=== PATIENT | female | born 1930 | race Caucasian/White ===

== ENCOUNTER 2017-08-15 09:54 | Emergency (ER) | payer OTHER ==
[2017-08-15] MEDS ORDERED: ACETAMINOPHEN 325 MG TABLET ONE (11:17)
--- NOTE | 2017-08-15 11:28 | RAD REPORT ---
EXAM DESCRIPTION: RAD - Wrist Left 3 View - 08/15/2017 11:00 am CLINICAL HISTORY: Left wrist pain status post injury FINDINGS: There appear to be old fractures involving the distal radius and ulna. The bones are osteoporotic. A small lucency is present within the triquetrum which could either represent a prominent trabecula o r nondisplaced fracture and should be correlated clinically to see if the patient has point tendernes s in this region.
--- NOTE | 2017-08-15 11:32 | RAD REPORT ---
EXAM DESCRIPTION: RAD - Knee Right 3 View - 08/15/2017 11:10 am CLINICAL HISTORY: Left knee pain status post fall FINDINGS: A nondisplaced fracture involves the patella. A moderate hemarthrosis is present. No dislocation is seen. The bones are osteoporotic
--- NOTE | 2017-08-15 12:25 | EDPHYS ---
Physician Documentation [facility] Name: Beryl Diaz Age: 86 yrs Sex: Female : 1930 Arrival Date: 08/15/2017 Time: 09:57 Bed 17 Private MD: Crystal Garcia ED Physician Reid Mancia HPI: 08/15 10:33 This 86 yrs old Female presents to ER via Ambulatory with complaints of Fall jr8 Injury, Wrist Pain, Knee Pain. 10:33 Details of fall: The patient fell from an upright position, while standing. Onset: The jr8 symptoms/episode began/occurred acutely, yesterday. Associated injuries: The patient sustained left arm, decreased range of motion, ecchymosis, swelling, right leg, ecchymosis, swelling. Severity of symptoms: At their worst the symptoms were moderate, in the emergency department the symptoms are unchanged. The patient has not experienced similar symptoms in the past. The patient has not recently seen a physician. Patient stated that she was at musical and tripped over some wires. Fell landing on knee and wrist. Denies hitting head or neck. No LOC . Historical: - Allergies: 10:12 PENICILLINS (Rash); hb 10:12 Sulfa (Sulfonamide Antibiotics) (Rash); hb - Home Meds: 10:12 aspirin 81 mg Oral chew 1 tab once daily [Active]; Avapro 150 mg Oral tab 1 tab once hb daily [Active]; baxyl twice a day [Active]; CoQ-10 100 mg Oral cap daily [Active]; Fish Oil 1,000 mg Oral cap daily [Active]; Flonase 50 mcg/actuation Nasal spsn 1 spray 2 times per day [Active]; Prilosec 20 mg Oral cpDR 1 cap once daily [Active]; armando eyes twice a day [Active]; Vitamin B-12 Oral daily [Active]; Zyrtec 10 mg Oral chew 1 tab once daily [Active]; calcium carbonate 600 mg (1,500 mg) Oral tab daily [Active]; 11:17 Vitamin D 2000 units Oral [Active]; tw2 - PMHx: 10:12 allergies; Hypertension; hb - PSHx: 10:12 Tonsillectomy; Adenoids; Appendectomy; Hysterectomy; Tubal ligation; wrist fracture hb surgery; left cataract surgery; liver resection; - Immunization history:: Adult Immunizations up to date. - Social history:: Smoking status: Patient/guardian denies using tobacco. ROS: 10:33 Eyes: Negative for injury, pain, redness, and discharge, ENT: Negative for injury, jr8 pain, and discharge, Neck: Negative for injury, pain, and swelling, Cardiovascular: Negative for chest pain, palpitations, and edema, Respiratory: Negative for shortness of breath, cough, wheezing, and pleuritic chest pain, Abdomen/GI: Negative for abdominal pain, nausea, vomiting, diarrhea, and constipation, Back: Negative for injury and pain, Skin: Negative for injury, rash, and discoloration, Neuro: Negative for headache, weakness, numbness, tingling, and seizure. 10:33 MS/extremity: Positive for decreased range of motion, ecchymosis, pain, swelling, tenderness, of the right knee. Left wrist . Exam: 10:33 Head/Face: Normocephalic, atraumatic. Eyes: Pupils equal round and reactive to light, jr8 extra-ocular motions intact. Lids and lashes normal. Conjunctiva and sclera are non-icteric and not injected. Cornea within normal limits. Periorbital areas with no swelling, redness, or edema. ENT: Nares patent. No nasal discharge, no septal abnormalities noted. Tympanic membranes are normal and external auditory canals are clear. Oropharynx with no redness, swelling, or masses, exudates, or evidence of obstruction, uvula midline. Mucous membranes moist. Neck: Trachea midline, no thyromegaly or masses palpated, and no cervical lymphadenopathy. Supple, full range of motion without nuchal rigidity, or vertebral point tenderness. No Meningismus. Chest/axilla: Normal chest wall appearance and motion. Nontender with no deformity. No lesions are appreciated. Cardiovascular: Regular rate and rhythm with a normal S1 and S2. No gallops, murmurs, or rubs. Normal PMI, no JVD. No pulse deficits. Respiratory: Lungs have equal breath sounds bilaterally, clear to auscultation and percussion. No rales, rhonchi or wheezes noted. No increased work of breathing, no retractions or nasal flaring. Abdomen/GI: Soft, non-tender, with normal bowel sounds. No distension or tympany. No guarding or rebound. No evidence of tenderness throughout. Back: No spinal tenderness. No costovertebral tenderness. Full range of motion. Skin: Warm, dry with normal turgor. Normal color with no rashes, no lesions, and no evidence of cellulitis. Neuro: Awake and alert, GCS 15, oriented to person, place, time, and situation. Cranial nerves II-XII grossly intact. Motor strength 5/5 in all extremities. Sensory grossly intact. Cerebellar exam normal. Normal gait. 10:33 Musculoskeletal/extremity: Extremities: grossly normal except: noted in the left wrist: decreased ROM, ecchymosis, pain, swelling, tenderness, noted in the right knee: ecchymosis, pain, swelling, tenderness, Circulation is intact in all extremities. Sensation intact. Vital Signs: 10:10 BP 154 / 85; Pulse 84; Resp 16; Temp 98.2; Pulse Ox 98% on R/A; Weight 68.04 kg; Height hb 5 ft. 3 in. (160.02 cm); Pain 5/10; 11:15 BP 162 / 89; Pulse 80; Resp 17; Pulse Ox 97% on R/A; tw2 12:06 BP 155 / 92; Pulse 79; Resp 17; Pulse Ox 97% on R/A; tw2 10:10 Body Mass Index 26.57 (68.04 kg, 160.02 cm) hb Trauma Score (Adult): 10:10 Eye Response: spontaneous(1); Verbal Response: oriented(1); Motor Response: obeys hb commands(2); Systolic BP: > 89 mm Hg(4); Respiratory Rate: 10 to 29 per min(4); Yennifer Score: 15; Trauma Score: 12 Procedures: 12:25 Splinting: Splint applied to right leg using knee immobilizer, applied by nurse. jr8 Examined by me, post splint application: neurovascular intact, 2+ distal pulses palpable, brisk capillary refill noted, Patient tolerated well. 12:25 Splinting: Splint applied to left wrist using wrist splint, applied by nurse. Examined jr8 by me, post splint application: neurovascular intact, 2+ distal pulses palpable, brisk capillary refill noted, Patient tolerated well. MDM: 10:15 Patient medically screened. jr8 12:25 Data reviewed: vital signs, nurses notes, radiologic studies, plain films, and as a jr8 result, I will discharge patient. Data interpreted: Pulse oximetry: on room air is 97 %. Interpretation: normal. Counseling: I had a detailed discussion with the patient and/or guardian regarding: the historical points, exam findings, and any diagnostic results supporting the discharge/admit diagnosis, radiology results, the need for outpatient follow up, a orthopedic surgeon, to return to the emergency department if symptoms worsen or persist or if there are any questions or concerns that arise at home. 08/15 10:33 Order name: XRAY Wrist LEFT 3 view [facility] 08/15 10:33 Order name: XRAY Knee RIGHT 3 view [facility] 08/15 11:28 Order name: RAD; Complete Time: 11:34 [facility] 08/15 11:32 Order name: RAD; Complete Time: 11:34 [facility] 08/15 11:49 Order name: Knee Immobilizer; Complete Time: 12:05 [facility] 08/15 11:49 Order name: Wrist Splint; Complete Time: 12:05 [facility] Administered Medications: 11:00 Drug: Tylenol 650 mg Route: PO; tw2 12:05 Follow up: Response: No adverse reaction; Pain is decreased tw2 Disposition: 08/15/17 12:24 Discharged to Home. Impression: Contusion of left wrist, Nondisplaced right patellar fracture . - Condition is Stable. - Discharge Instructions: Patellar Fracture, Adult, Wrist Pain. - Medication Reconciliation Form, Thank You Letter, Antibiotic Education, Prescription Opioid Use form. - Follow up: Choco Lazcano MD; When: 1 - 2 days; Reason: Recheck today's complaints, Continuance of care, Re-evaluation by your physician. - Problem is new. - Symptoms have improved. Addendum: 08/17/2017 08:10 Co-signature as Attending Physician, Reid Mancia MD I agree with the assessment and c escoto plan of care. Signatures: Dispatcher [employer] [facility] Reid Mancia MD MD cha Smirch, Shelby, RN RN Doni Williamson PA PA jr8 Love Heaton, RN RERE [facility] Marlyn Preciado RN RN Cindi Leija RN RN tw2
--- NOTE | 2017-08-15 12:25 | ER ---
Nurse's Notes [facility] Name: Beryl Diaz Age: 86 yrs Sex: Female : 1930 Arrival Date: 08/15/2017 Time: 09:57 Bed 17 Private MD: Crystal Garcia Diagnosis: Contusion of left wrist;Nondisplaced right patellar fracture Presentation: 08/15 10:08 Presenting complaint: Patient states: Mechanical fall from standing last night, fell hb forward and landed on left hand and right knee. c/o LEFT wrist and RIGHT knee pain /10. Denies other injuries/LOC. Care prior to arrival: None. Mechanism of Injury: Fall from standing position. 10:08 Acuity: TIBURCIO 4 hb 10:08 Method Of Arrival: Ambulatory hb 10:15 Transition of care: patient was not received from another setting of care. Onset of rb1 symptoms was August 14, 2017. Historical: - Allergies: 10:12 PENICILLINS (Rash); hb 10:12 Sulfa (Sulfonamide Antibiotics) (Rash); hb - Home Meds: 10:12 aspirin 81 mg Oral chew 1 tab once daily [Active]; Avapro 150 mg Oral tab 1 tab once hb daily [Active]; baxyl twice a day [Active]; CoQ-10 100 mg Oral cap daily [Active]; Fish Oil 1,000 mg Oral cap daily [Active]; Flonase 50 mcg/actuation Nasal spsn 1 spray 2 times per day [Active]; Prilosec 20 mg Oral cpDR 1 cap once daily [Active]; armando eyes twice a day [Active]; Vitamin B-12 Oral daily [Active]; Zyrtec 10 mg Oral chew 1 tab once daily [Active]; calcium carbonate 600 mg (1,500 mg) Oral tab daily [Active]; 11:17 Vitamin D 2000 units Oral [Active]; tw2 - PMHx: 10:12 allergies; Hypertension; hb - PSHx: 10:12 Tonsillectomy; Adenoids; Appendectomy; Hysterectomy; Tubal ligation; wrist fracture hb surgery; left cataract surgery; liver resection; - Immunization history:: Adult Immunizations up to date. - Social history:: Smoking status: Patient/guardian denies using tobacco. Screenin:15 Abuse screen: Denies threats or abuse. Nutritional screening: No deficits noted. rb1 Tuberculosis screening: No symptoms or risk factors identified. Fall Risk Fall in past 12 months (25 points). No secondary diagnosis (0 pts). No IV (0 pts). Ambulatory Aid- None/Bed Rest/Nurse Assist (0 pts). Gait- Normal/Bed Rest/Wheelchair (0 pts) Mental Status- Oriented to own ability (0 pts). 10:15 Fall Risk Total Davis Fall Scale indicates Low Risk Score (25-44 pts). Fall prevention rb1 measures have been instituted. Side Rails Up X 2 Placed close to Nursing Station 1:1 attendant Assigned to Pt. Frequent Obs/Assesments occuring Family Present and informed to notify staff if they need to leave bedside As available Patient and Family Educated on Fall Prevention Program and strategies. Primary Survey: 10:11 A: Airway: patent, No supplemental oxygen in use on arrival. Breathing/Chest: hb Respiratory pattern: regular, Respiratory effort: spontaneous, unlabored, Chest inspection: symmetrical rise and fall of the chest. Circulation: Pulses: palpable . Skin color: pink, Skin temperature: warm, dry. Disability Alert. Assessment: 10:15 General: Appears uncomfortable, Behavior is calm, cooperative, Denies fever. Pain: rb1 Complains of pain in right leg and left arm Pain currently is 5 out of 10 on a pain scale. Pain began 1 day ago. Neuro: Level of Consciousness is awake, alert, obeys commands, Oriented to person, place, time, situation. Cardiovascular: Capillary refill < 3 seconds is brisk in bilateral fingers. Respiratory: Airway is patent Respiratory effort is even, unlabored, Respiratory pattern is regular, symmetrical. GI: No signs and/or symptoms were reported involving the gastrointestinal system. : No signs and/or symptoms were reported regarding the genitourinary system. Derm: Bruising that is dark purple, on left wrist and right knee. Musculoskeletal: Range of motion: intact in all extremities. 11:15 Reassessment: Patient appears in no apparent distress at this time. No changes from tw2 previously documented assessment. Patient and/or family updated on plan of care and expected duration. Pain level reassessed. Patient is alert, oriented x 3, equal unlabored respirations, skin warm/dry/pink. 12:06 Reassessment: Patient appears in no apparent distress at this time. No changes from tw2 previously documented assessment. Patient and/or family updated on plan of care and expected duration. Pain level reassessed. Patient is alert, oriented x 3, equal unlabored respirations, skin warm/dry/pink. Vital Signs: 10:10 BP 154 / 85; Pulse 84; Resp 16; Temp 98.2; Pulse Ox 98% on R/A; Weight 68.04 kg; Height hb 5 ft. 3 in. (160.02 cm); Pain 5/10; 11:15 BP 162 / 89; Pulse 80; Resp 17; Pulse Ox 97% on R/A; tw2 12:06 BP 155 / 92; Pulse 79; Resp 17; Pulse Ox 97% on R/A; tw2 10:10 Body Mass Index 26.57 (68.04 kg, 160.02 cm) hb Trauma Score (Adult): 10:10 Eye Response: spontaneous(1); Verbal Response: oriented(1); Motor Response: obeys hb commands(2); Systolic BP: > 89 mm Hg(4); Respiratory Rate: 10 to 29 per min(4); Yennifer Score: 15; Trauma Score: 12 ED Course: 09:57 Patient arrived in ED. as 09:57 Crystal Garcia MD is Private Physician. as 10:10 Triage completed. hb 10:15 Doni Gill PA is PHCP. jr8 10:15 Reid Mancia MD is Attending Physician. jr8 10:15 Patient has correct armband on for positive identification. Bed in low position. Call rb1 light in reach. Side rails up X 1. Pulse ox on. NIBP on. Warm blanket given. 10:22 Love Heaton, RN is Primary Nurse. rb1 10:48 Primary Nurse role handed off by Love Heaton, RN tw2 10:48 Cindi Leija, RERE is Primary Nurse. tw2 10:50 Arm band placed on. tw2 10:57 X-ray completed. Portable x-ray completed in exam room. Patient tolerated procedure kp1 well. 11:18 No provider procedures requiring assistance completed. tw2 11:46 XRAY Knee RIGHT 3 view Sent. ag 11:46 XRAY Wrist LEFT 3 view Sent. ag 12:02 Velcro wrist splint applied to left wrist. Knee immobilizer applied on right knee. ag 12:06 Dressings:. tw2 12:23 Choco Lazcano MD is Referral Physician. jr8 12:35 Patient did not have IV access during this emergency room visit. tw2 Administered Medications: 11:00 Drug: Tylenol 650 mg Route: PO; tw2 12:05 Follow up: Response: No adverse reaction; Pain is decreased tw2 Outcome: 12:24 Discharge ordered by . jr8 12:35 Discharged to home ambulatory, with family. tw2 12:35 Condition: stable 12:35 Discharge instructions given to patient, family, Instructed on discharge instructions, follow up and referral plans. Demonstrated understanding of instructions, follow-up care. 12:36 Patient left the ED. Signatures: Myranda Emerson Shelby, RN RN Doni Gill PA PA jr8 Zulay Fonseca Rebecca, RN RN [facility] Marlyn Preciado RN RN Cindi Leija RN RN tw2 Nga Brock 1
[2017-08-15 12:41] VITALS: TEMP 98.2
[2017-08-15 12:42] VITALS: O2SAT 97
[2017-08-15 12:43] VITALS: BP 155/92
== END 2017-08-15 12:36 | disposition home or self-care (01) ==
LOC: ER 09:54
DX: S82.001A Unspecified fracture of right patella, initial encounter for closed fracture (principal); S60.212A Contusion of left wrist, initial encounter; W01.0XXA Fall on same level from slipping, tripping and stumbling without subsequent striking against object, initial encounter; Y93.01 Activity, walking, marching and hiking; Y92.89 Other specified places as the place of occurrence of the external cause; Z88.0 Allergy status to penicillin; Z88.2 Allergy status to sulfonamides; Z79.82 Long term (current) use of aspirin; I10 Essential (primary) hypertension
CPT/HCPCS: 99284

== ENCOUNTER 2018-08-22 17:01 | Observation (INO) | payer OTHER ==
--- OUTSIDE RECORDS SUMMARY | 2018-08-22 17:03 | XMS REPORT ---
:1930 Author Organization eClinicalWorks Care Team Providers Name Role Phone Hopkins Moshe Provider Role Unavailable Allergies, Adverse Reactions, Alerts Substance Reaction Event Type Sulfa Info Not Available Drug Allergy PCN Info Not Available Drug Allergy Problems Problem Type Condition Code Onset Dates Condition Status Assessment Pain in joint of left knee M25.562 Active Problem Allergic rhinitis, seasonal J30.2 Active Assessment Primary osteoarthritis of left knee M17.12 Active Assessment Primary osteoarthritis of right M17.11 Active knee Assessment Pain in joint of right knee M25.561 Active Problem 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 Problem Alkaline phosphatase elevation R74.8 Active Problem 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 Problem GERD (gastroesophageal reflux K21.9 Active disease) Problem History of colon cancer Z85.038 Active Problem Hyperlipidemia E78.5 Active Problem Benign essential HTN I10 Active Medications Medication Code Code Instructions Start End Status Dosage System Date Date Flonase [facility] 50650641561 50 MCG/ACT Active INSTILL 2 SPRAYS INTRANASALLY ONCE DAILY Prilosec ND 11065771084 20 MG Orally Active 1 capsule Once a day Flonase ND 61801083873 50 MCG/ACT Active INSTILL 2 SPRAYS INTRANASALLY ONCE DAILY Triamcinolone ND 50678033447 0.025 % July Active 1 application Acetonide Externally 21, to affected Twice a day 2018 area Fish Oil ND 68238111852 1200 MG Orally Active 1 capsule Once a day Zyrtec Allergy ND 63239270911 10 MG Orally Active 1 tablet Once a day Omeprazole ND 31883645870 20 MG Active TAKE 1 CAPSULE DAILY Avapro ND 98797445862 150 MG Active TAKE 1 TABLET DAILY Os-Kb 500 + D NDC 0 Active not defined Neomycin-Polymyx ND 40468214443 3.5-96491-5 Mar 08, Active 4 drops into in-HC Otic Three 2018 affected ear times a day Results No Known Results Summary Purpose eClinicalWorks Submission
--- OUTSIDE RECORDS SUMMARY | 2018-08-22 17:03 | XMS REPORT ---
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
--- OUTSIDE RECORDS SUMMARY | 2018-08-22 17:03 | XMS REPORT ---
:1930 Author Organization eClinicalWorks Care Team Providers Name Role Phone Garcia, Na Provider Role Unavailable Allergies No Known Allergies Problems Problem Type Condition Code Onset Dates Condition Status Assessment GERD (gastroesophageal reflux K21.9 Active disease) Assessment Allergic rhinitis, seasonal J30.2 Active Assessment Benign essential HTN I10 Active Problem Benign essential HTN I10 Active Problem GERD (gastroesophageal reflux K21.9 Active disease) Problem Hyperlipidemia E78.5 Active Problem Alkaline phosphatase elevation R74.8 Active Problem History of colon cancer Z85.038 Active Problem Allergic rhinitis, seasonal J30.2 Active Medications Medication Code System Code Instructions Start End Date Status Dosage Date Avapro [facility] 75003252245 150 MG Orally Active 1 tablet Once a day Prilosec [facility] 34985738388 20 MG Orally Once Active 1 capsule a day Results No Known Results Summary Purpose eClinicalWorks Submission
--- OUTSIDE RECORDS SUMMARY | 2018-08-22 17:03 | XMS REPORT ---
:1930 Author Organization eClinicalWorks Care Team Providers Name Role Phone Garcia, Na Provider Role Unavailable Allergies, Adverse Reactions, Alerts Substance Reaction Event Type Sulfa Info Not Available Drug Allergy PCN Info Not Available Drug Allergy Problems Problem Type Condition Code Onset Dates Condition Status Assessment History of colon cancer Z85.038 Active Assessment Hyperlipidemia E78.5 Active Assessment GERD (gastroesophageal reflux K21.9 Active disease) Problem Benign essential HTN I10 Active Problem GERD (gastroesophageal reflux K21.9 Active disease) Problem Hyperlipidemia E78.5 Active Problem Alkaline phosphatase elevation R74.8 Active Assessment Benign essential HTN I10 Active Problem History of colon cancer Z85.038 Active Problem Allergic rhinitis, seasonal J30.2 Active Assessment Screening mammogram, encounter for Z12.31 Active Assessment Actinic keratosis L57.0 Active Assessment Allergic rhinitis, seasonal J30.2 Active Assessment Screening for osteoporosis Z13.820 Active Assessment Alkaline phosphatase elevation R74.8 Active Medications Medication Code Code Instructions Start End Status Dosage System Date Date Triamcinolone [facility] 12281964195 0.025 % July Active 1 application Acetonide Externally 21, to affected Twice a day 2018 area Flonase ND 49114591245 50 MCG/ACT Active INSTILL 2 SPRAYS INTRANASALLY ONCE DAILY Avapro ND 44720149552 150 MG Orally Active 1 tablet Once a day Os-Kb 500 + D NDC 0 Active not defined Zyrtec Allergy ND 22118107272 10 MG Orally Active 1 tablet Once a day Prilosec ND 22895542505 20 MG Orally Active 1 capsule Once a day Fish Oil ND 04796426936 1200 MG Orally Active 1 capsule Once a day Results No Known Results Summary Purpose eClinicalWorks Submission
--- OUTSIDE RECORDS SUMMARY | 2018-08-22 17:03 | XMS REPORT ---
[...] End Status Dosage System Date Date Triamcinolone [facility] 79088275580 0.025 % July Active 1 application Acetonide Externally 21, to affected Twice a day 2017 area Avapro ND 87054059489 150 MG Active TAKE 1 TABLET DAILY Omeprazole ND 44712425748 20 MG Active TAKE 1 CAPSULE DAILY Prilosec ND 67698912871 20 MG Orally Active 1 capsule Once a day Neomycin-Polymyx ND 11467670460 3.5-87400-6 Mar 08, Active 4 drops into in-HC Otic Three 2018 affected ear times a day Zyrtec Allergy ND 49760542398 10 MG Orally Active 1 tablet Once a day Fish Oil ND 00839317762 1200 MG Orally Active 1 capsule Once a day Flonase ND 60390736301 50 MCG/ACT Active INSTILL 2 SPRAYS INTRANASALLY ONCE DAILY Flonase NDC 61989067725 50 MCG/ACT Active INSTILL 2 SPRAYS INTRANASALLY ONCE DAILY Os-Kb 500 + D NDC 0 Active not defined Results No Known Results Summary Purpose eClinicalWorks Submission
--- OUTSIDE RECORDS SUMMARY | 2018-08-22 17:03 | XMS REPORT ---
:1930 Author Organization eClinicalWorks Care Team Providers Name Role Phone Moshe Hopkins Provider Role Unavailable Allergies No Known Allergies [...] Problem Benign essential HTN I10 Active Medications No Known Medications Results No Known Results Summary Purpose eClinicalWorks Submission
[2018-08-22 18:01] LABS: Absolute Lymphocytes (CBC) 0.5 K/uL (0.7-4.9); Absolute Monocytes 0.5 K/uL (0.1-1.3); Absolute Neutrophil 10.5 K/uL (1.8-8.0); Basophils % 0.3 % (0-1.3); Eosinophils % 0.1 % (0-4.4); Hematocrit 43.9 % (36.0-45.0); Lymphocytes % 4.3 % (15.3-44.8); MPV 8.9 fL (7.6-11.3); Monocytes % 4.7 % (3.3-12.3); RBC Red Blood Cell Count 4.73 M/uL (3.86-4.86)
[2018-08-22] MEDS ORDERED: NA CHLORIDE 0.9% 1,000 ML ONE ×2 (18:03→19:53)
[2018-08-22 18:10] LABS: Protime INR 1.07
[2018-08-22 18:21] LABS: ALT/SGPT 60 U/L (12-78); AST/SGOT 69 U/L (15-37); Albumin 3.6 g/dL (3.4-5.0); Alkaline Phosphatase 301 U/L (45-117); BUN Blood Urea Nitrogen 21 mg/dL (7-18); Bicarbonate 27 mmol/L (21-32); Bilirubin Direct 0.5 mg/dL (0-0.2); Bilirubin Total 1.3 mg/dL (0.2-1.0); CKMB Creatine Kinase MB < 1.0 ng/mL (0.3-3.6); Creatine Phosphokinase 61 U/L (26-192); Glucose Level 100 mg/dL (74-106); Lipase 178 U/L (73-393); Potassium 3.7 mmol/L (3.5-5.1); Protein, Total 7.5 g/dL (6.4-8.2); Sodium Level 140 mmol/L (136-145); Troponin (Emerg Dept Use Only) < 0.02 ng/mL (0.0-0.045)
[2018-08-22] MEDS ORDERED: IBUPROFEN 400 MG TAB ONE (18:52)
[2018-08-22] MEDS ORDERED: IBUPROFEN 200 MG TAB PO ONE (18:53)
--- NOTE | 2018-08-22 19:13 | RAD REPORT ---
EXAM DESCRIPTION: CT - Chest For Pe Angio - 08/22/2018 7:01 pm CLINICAL HISTORY: Chest pain, shortness of breath COMPARISON: Chest film same date, PE study November 2016 TECHNIQUE: Dynamically enhanced 3 mm thick images of the chest were obtained during administration o f approximately 150mL Isovue 370 IV contrast. Coronal and oblique MIP reconstruction images were gene rated and reviewed. Exam utilizes a protocol to evaluate the pulmonary arterial tree. All CT scans are performed using dose optimization technique as appropriate and may include automated exposure control or mA/KV adjustment according to patient size. FINDINGS: No pulmonary emboli are identified. The aorta as imaged shows no acute or suspicious finding. No pericardial thickening or effusion. No focal mass or consolidation. Interstitial thickening is present from edema, infiltrate or scarring . No pleural effusion or pleural thickening. No mediastinal or hilar suspicious masses. No chest wall masses or abnormal axillary lymphadenopathy. Limited imaging of the upper abdomen shows moderate size hiatal hernia. This is slightly enlarged fro 2016. There is a 14 centimeter right hepatic cyst that is similar to comparison. IMPRESSION: No pulmonary emboli identified. Interstitial thickening from edema or infiltrate. No mass or consolidation. Additional nonacute findings detailed in the body of the report.
--- NOTE | 2018-08-22 19:13 | RAD REPORT ---
EXAM DESCRIPTION: RAD - Chest Single View - 08/22/2018 6:54 pm CLINICAL HISTORY: Fever, dyspnea COMPARISON: November 2016 TECHNIQUE: AP portable chest image was obtained 1851 hours . FINDINGS: Lung volumes are low. No peripheral mass or consolidation. Patient has a baseline of inter stitial opacification. Early interstitial edema or infiltrate could easily be masked in this setting. Mediastinum is accentuated by the shallow inspiration. Heart and vasculature are normal. No measurab le pleural effusion and no pneumothorax. No acute bony abnormality seen. No acute aortic findings joao pected. IMPRESSION: No peripheral mass or consolidation. Diffuse interstitial thickening throughout the lung bravo. This is mostly baseline. Due to shallow i nspiration, edema and infiltrate are not excluded.
[2018-08-22] MEDS ORDERED: ACETAMINOPHEN 325 MG TABLET ONE (19:53)
[2018-08-22 20:20] LABS: Urine Bacteria <20 /HPF (<20); Urine Culture Reflex Order REFLEXED; Urine RBC <5 /HPF (NONE SEEN)
[2018-08-22 20:28] LABS: Urine Blood TRACE (NEG); Urine Glucose NEGATIVE (NEG); Urine Protein NEGATIVE (NEG)
--- NOTE | 2018-08-22 20:35 | ER ---
Nurse's Notes [facility] Name: Beryl Diaz Age: 87 yrs Sex: Female : 1930 Arrival Date: 08/22/2018 Time: 17:03 Bed 8 Private MD: Crystal Garcia Diagnosis: Pneumonia, unspecified organism;Tachycardia, unspecified Presentation: 08/22 17:25 Presenting complaint: Patient states: Last night I had a little ENG but this morning la1 after I left denominational I had chills, body aches, shortness of breath. Transition of care: patient was not received from another setting of care. Onset of symptoms was August 22, 2018. Risk Assessment: Do you want to hurt yourself or someone else? Patient reports no desire to harm self or others. Care prior to arrival: None. 17:25 Method Of Arrival: Ambulatory la1 17:25 Acuity: TIBURCIO 2 la1 17:35 Initial Sepsis Screen: Does the patient meet any 2 criteria? Does the patient have a aa5 suspected source of infection? Yes:. 17:35 Initial Sepsis Screen: Does the patient meet any 2 criteria? HR > 90 bpm. aa5 Triage Assessment: 20:06 General: Appears in no apparent distress. Pain: Complains of pain in headache. ak1 Respiratory: the patient has mild shortness of breath. Historical: - Allergies: 17:26 PENICILLINS (rash); la1 17:26 Sulfa (Sulfonamide Antibiotics) (rash); la1 - Home Meds: 22:00 aspirin 81 mg Oral chew 1 tab once daily [Active]; Avapro 150 mg Oral tab 1 tab once ak1 daily [Active]; baxyl twice a day [Active]; calcium carbonate 600 mg (1,500 mg) Oral tab daily [Active]; CoQ-10 100 mg Oral cap daily [Active]; Fish Oil 1,000 mg Oral cap daily [Active]; Flonase 50 mcg/actuation Nasal spsn 1 spray 2 times per day [Active]; Prilosec 20 mg Oral cpDR 1 cap once daily [Active]; armando eyes twice a day [Active]; Vitamin B-12 Oral daily [Active]; Vitamin D 2000 units Oral [Active]; Zyrtec 10 mg Oral chew 1 tab once daily [Active]; - PMHx: 17:26 allergies; Hypertension; la1 - PSHx: 22:00 Tonsillectomy; Adenoids; Appendectomy; Hysterectomy; Tubal ligation; left cataract ak1 surgery; wrist fracture surgery; liver resection; - Immunization history:: Adult Immunizations up to date. - Social history:: Smoking status: Patient/guardian denies using tobacco. - Ebola Screening: : No symptoms or risks identified at this time. Screenin:35 Abuse screen: Denies threats or abuse. Nutritional screening: No deficits noted. aa5 Tuberculosis screening: No symptoms or risk factors identified. Fall Risk None identified. Assessment: 17:35 General: Appears comfortable, Behavior is calm, cooperative, Reports chills for 0-12 aa5 hours, fever for 0-12 hours. Pain: Complains of pain in whole body and upper back Pain does not radiate. Pain currently is 5 out of 10 on a pain scale. Quality of pain is described as aching, Pain began today Is continuous. Neuro: Level of Consciousness is awake, alert, obeys commands, Oriented to person, place, time, situation. Cardiovascular: Heart tones S1 S2 present Rhythm is sinus tachycardia. Respiratory: Reports shortness of breath Airway is patent Respiratory effort is even, unlabored, Respiratory pattern is regular, symmetrical, Breath sounds are clear bilaterally. Denies cough. GI: Abdomen is round non-distended, Bowel sounds present X 4 quads. Abd is soft and non tender X 4 quads. : No signs and/or symptoms were reported regarding the genitourinary system. EENT: Reports nasal congestion. Derm: Skin is pink, warm \\T\\ dry. Musculoskeletal: Range of motion: intact in all extremities. 18:00 Reassessment: Patient is alert, oriented x 3, equal unlabored respirations, skin aa5 warm/dry/pink. Pt notified of wait time for lab results. Call erwin within reach . 18:35 Reassessment: Pt noted to be shaking, pt appears uncomfortable. Pt states "I am just so aa5 cold". Pt also requesting pain medication at this time, CODE ENFORCEMENT SUPERVISOR was notified. . 18:48 Reassessment: Pt to CT NS bolus paused at this time. . aa5 20:07 Reassessment: Patient appears in no apparent distress at this time. No changes from ak1 previously documented assessment. 21:42 Reassessment: pt c/o IV site "stinging up my arm" new IV started in left hand and bb antibiotics moved to left hand pt states it is feeling better now. 21:57 Reassessment: Patient appears in no apparent distress at this time. pt sitting on side ak1 of bed texting. pt requested to go to 424 by wheel chair. Vital Signs: 17:26 BP 143 / 85; Pulse 130; Resp 20; Temp 99.9(O); Pulse Ox 94% on R/A; Weight 68.04 kg; la1 Height 5 ft. 3 in. (160.02 cm); Pain 7/10; 18:10 BP 127 / 73; Pulse 120; Resp 22 S; Pulse Ox 95% on R/A; Pain 5/10; aa5 18:25 Temp 99.7(O); aa5 20:06 BP 121 / 61; Pulse 125; Resp 32; Temp 100.7(O); Pulse Ox 93% on R/A; ak1 20:58 BP 128 / 73; Pulse 118; Resp 24; Pulse Ox 98% on 100% Nebulizer Mask; ak1 21:31 BP 103 / 61; Pulse 118; Resp 24; Pulse Ox 93% on 2 lpm NC; ak1 21:52 BP 103 / 61; Pulse 119; Resp 20 S; Temp 99.0(O); Pulse Ox 94% on 2 lpm NC; ak1 17:26 Body Mass Index 26.57 (68.04 kg, 160.02 cm) la1 ED Course: 17:03 Patient arrived in ED. mr 17:04 Crystal Garcia MD is Private Physician. mr 17:26 Triage completed. la1 17:27 Arm band placed on left wrist. la1 17:32 Damari Chapman, RERE is Primary Nurse. aa5 17:33 Mely Birch F[facility]-C [facility]. kb 17:33 Juan Oliver MD is Attending Physician. kb 17:35 Patient has correct armband on for positive identification. Placed in gown. Bed in low aa5 position. Call light in reach. Side rails up X2. threat monitoring analyst on. Pulse ox on. NIBP on. 17:40 Initial lab(s) drawn, by me, sent to lab. Inserted saline lock: 20 gauge in right aa5 antecubital area, using aseptic technique. Blood collected. 17:40 First set of blood cultures drawn by me. aa5 18:00 Second set of blood cultures drawn by me. aa5 18:08 EKG done, by ED staff, reviewed by Mely PERES. jb1 18:13 No provider procedures requiring assistance completed. aa5 18:55 Chest Single View XRAY In Process Unspecified. EDMS 18:58 CT completed. Patient tolerated procedure well. Patient moved to CT via stretcher. mw3 Patient moved back from CT. 19:01 CT Chest For PE Angio In Process Unspecified. EDMS 19:05 Report given to RERE Raya and RERE Kennedy. aa5 20:34 Yani Ba MD is Hospitalizing Provider. kb 21:43 Inserted saline lock: 20 gauge in left hand, using aseptic technique. bb 21:57 Patient admitted, IV remains in place. ak1 22:04 Urine Dipstick--Ancillary (enter results) Sent. ak1 Administered Medications: 18:00 Drug: NS 0.9% 1000 ml Route: IV; Rate: 1000 ml; Site: right antecubital; aa5 19:56 Follow up: IV Status: Completed infusion; IV Intake: 1000ml ak1 18:37 Drug: Ibuprofen 600 mg Route: PO; aa5 21:31 Follow up: Response: No adverse reaction ak1 19:53 Drug: NS 0.9% 1000 ml Route: IV; Rate: 1000 ml; Site: right antecubital; ak1 21:30 Follow up: IV Status: Completed infusion; IV Intake: 1000ml ak1 19:56 Drug: Tylenol 650 mg Route: PO; ak1 21:31 Follow up: BP 103 / 61; Pulse 118 bpm; Resp 24 bpm; Pulse Ox 93% 2 lpm Nasal Cannula ak1 20:57 Drug: Xopenex 1.25 mg Route: Inhalation; ak1 20:57 Drug: AtroVENT Aerosol 0.5 mg Route: Inhalation; ak1 20:57 Drug: Rocephin 1 grams Route: IV; Rate: calculated rate; Site: right antecubital; ak1 21:30 Follow up: IV Status: Completed infusion ak1 20:57 Drug: Zithromax 500 mg Route: IVPB; Infused Over: 1 hrs; Site: right antecubital; ak1 22:03 Follow up: IV Status: Completed infusion; IV Intake: 250ml ak1 21:49 Drug: fentaNYL (PF) 25 mcg Route: IVP; Site: left hand; jd3 Intake: 19:56 IV: 1000ml; Total: 1000ml. ak1 21:30 IV: 1000ml; Total: 2000ml. ak1 22:03 IV: 250ml; Total: 2250ml. ak1 Outcome: 20:34 Decision to Hospitalize by Provider. kb 21:55 Condition: stable ak1 21:55 Instructed on the need for admit. 22:32 Patient left the ED. ak1 Signatures: Dispatcher [employer] EDMS Justice Holt jbMely Chaudhry, PORCELAIN ENAMEL REPAIRER-C PORCELAIN ENAMEL REPAIRER-CkMarleen Hoyos mr Wendi Mcdonnell, RN RN Damari Zeng, RN RN caro5 Yaya Paez RN RN Dorota Adams RN RN [email or web address] Brent Castillo RN RN [email or web address] Marizol Pandya mw3 Corrections: (The following items were deleted from the chart) 18:19 17:25 Initial Sepsis Screen: Does the patient have a suspected source of infection? carly aa5 21:58 21:52 BP 103 / 61; Pulse 119bpm; Resp 20bpm; Spontaneous; Pulse Ox 94% 2 lpm Nasal ak1 Cannula; jd3
--- NOTE | 2018-08-22 20:35 | EDPHYS ---
Physician Documentation [facility] Name: Beryl Diaz Age: 87 yrs Sex: Female : 1930 Arrival Date: 08/22/2018 Time: 17:03 Bed 8 Private MD: Crystal Garcia ED Physician Juan Oliver HPI: 08/22 20:19 This 87 yrs old Female presents to ER via Ambulatory with complaints of Flu kb Symptoms, Shortness Of Breath. 20:19 The patient or guardian reports cough, that is intermittent, described as mild, with no kb sputum, difficulty breathing, flu symptoms, arthralgias, low-grade fever, myalgias. Onset: The symptoms/episode began/occurred this morning. Severity of symptoms: At their worst the symptoms were mild, moderate, in the emergency department the symptoms are unchanged. Modifying factors: The symptoms are alleviated by nothing, the symptoms are aggravated by nothing. Associated signs and symptoms: Pertinent positives: fever, Pertinent negatives: chest pain, diarrhea, ear ache, nausea, rhinorrhea, sore throat, vomiting. The patient has not experienced similar symptoms in the past. The patient has not recently seen a physician. Pt reports headache, bodyaches, chills, fever, cough and shortness of breath that started this morning. States she was worried that she may have the flu or pneumonia. Historical: - Allergies: 17:26 PENICILLINS (rash); la1 17:26 Sulfa (Sulfonamide Antibiotics) (rash); la1 - Home Meds: 22:00 aspirin 81 mg Oral chew 1 tab once daily [Active]; Avapro 150 mg Oral tab 1 tab once ak1 daily [Active]; baxyl twice a day [Active]; calcium carbonate 600 mg (1,500 mg) Oral tab daily [Active]; CoQ-10 100 mg Oral cap daily [Active]; Fish Oil 1,000 mg Oral cap daily [Active]; Flonase 50 mcg/actuation Nasal spsn 1 spray 2 times per day [Active]; Prilosec 20 mg Oral cpDR 1 cap once daily [Active]; armando eyes twice a day [Active]; Vitamin B-12 Oral daily [Active]; Vitamin D 2000 units Oral [Active]; Zyrtec 10 mg Oral chew 1 tab once daily [Active]; - PMHx: 17:26 allergies; Hypertension; la1 - PSHx: 22:00 Tonsillectomy; Adenoids; Appendectomy; Hysterectomy; Tubal ligation; left cataract ak1 surgery; wrist fracture surgery; liver resection; - Immunization history:: Adult Immunizations up to date. - Social history:: Smoking status: Patient/guardian denies using tobacco. - Ebola Screening: : No symptoms or risks identified at this time. ROS: 20:15 ENT: Negative for injury, pain, and discharge, Neck: Negative for injury, pain, and kb swelling, Cardiovascular: Negative for chest pain, palpitations, and edema, Abdomen/GI: Negative for abdominal pain, nausea, vomiting, diarrhea, and constipation, : Negative for injury, bleeding, discharge, and swelling, MS/Extremity: Negative for injury and deformity, Skin: Negative for injury, rash, and discoloration, Neuro: Negative for headache, weakness, numbness, tingling, and seizure. 20:15 Constitutional: Positive for body aches, chills, fatigue, fever, malaise, Negative for poor PO intake, weight loss. 20:15 Respiratory: Positive for cough, shortness of breath. 20:15 Back: Positive for upper back pain with deep breath. Exam: 20:16 Constitutional: This is a well developed, well nourished patient who is awake, alert, kb and in no acute distress. Head/Face: Normocephalic, atraumatic. ENT: Nares patent. No nasal discharge, no septal abnormalities noted. Tympanic membranes are normal and external auditory canals are clear. Oropharynx with no redness, swelling, or masses, exudates, or evidence of obstruction, uvula midline. Mucous membranes moist. Neck: Trachea midline, no thyromegaly or masses palpated, and no cervical lymphadenopathy. Supple, full range of motion without nuchal rigidity, or vertebral point tenderness. No Meningismus. Chest/axilla: Normal chest wall appearance and motion. Nontender with no deformity. No lesions are appreciated. Cardiovascular: Regular rhythm with a normal S1 and S2. No gallops, murmurs, or rubs. Normal PMI, no JVD. No pulse deficits. Tachycardia Respiratory: Lungs have equal breath sounds bilaterally, clear to auscultation and percussion. No rales, rhonchi or wheezes noted. No increased work of breathing, no retractions or nasal flaring. Abdomen/GI: Soft, non-tender, with normal bowel sounds. No distension or tympany. No guarding or rebound. No evidence of tenderness throughout. Skin: Warm, dry with normal turgor. Normal color with no rashes, no lesions, and no evidence of cellulitis. MS/ Extremity: Pulses equal, no cyanosis. Neurovascular intact. Full, normal range of motion. Neuro: Awake and alert, GCS 15, oriented to person, place, time, and situation. Cranial nerves II-XII grossly intact. Motor strength 5/5 in all extremities. Sensory grossly intact. Cerebellar exam normal. Normal gait. 20:16 ECG was reviewed by the Attending Physician. Vital Signs: 17:26 BP 143 / 85; Pulse 130; Resp 20; Temp 99.9(O); Pulse Ox 94% on R/A; Weight 68.04 kg; la1 Height 5 ft. 3 in. (160.02 cm); Pain 7/10; 18:10 BP 127 / 73; Pulse 120; Resp 22 S; Pulse Ox 95% on R/A; Pain 5/10; aa5 18:25 Temp 99.7(O); aa5 20:06 BP 121 / 61; Pulse 125; Resp 32; Temp 100.7(O); Pulse Ox 93% on R/A; ak1 20:58 BP 128 / 73; Pulse 118; Resp 24; Pulse Ox 98% on 100% Nebulizer Mask; ak1 21:31 BP 103 / 61; Pulse 118; Resp 24; Pulse Ox 93% on 2 lpm NC; ak1 21:52 BP 103 / 61; Pulse 119; Resp 20 S; Temp 99.0(O); Pulse Ox 94% on 2 lpm NC; ak1 17:26 Body Mass Index 26.57 (68.04 kg, 160.02 cm) la1 MDM: 17:34 Patient medically screened. kb 20:14 Data reviewed: vital signs, nurses notes. Data interpreted: Pulse oximetry: on room air kb is 94 %. Interpretation: acceptable. 20:33 Counseling: I had a detailed discussion with the patient and/or guardian regarding: the kb historical points, exam findings, and any diagnostic results supporting the discharge/admit diagnosis, lab results, radiology results, the need for further work-up and treatment in the hospital. Physician consultation: Yani Ba MD was contacted at 20:34, regarding admission, to the telemetry unit. patient's condition, and will see patient in ED, shortly. 08/22 17:27 Order name: Flu; Complete Time: 17:49 la1 08/22 17:42 Order name: Basic Metabolic Panel kb 08/22 17:42 Order name: Blood Culture Adult (2) kb 08/22 17:42 Order name: CBC with Diff; Complete Time: 18:18 kb 08/22 17:42 Order name: Ckmb; Complete Time: 18:22 kb 08/22 17:42 Order name: CPK; Complete Time: 18:22 kb 08/22 17:42 Order name: Lactate; Complete Time: 18:18 kb 08/22 17:42 Order name: LFT's; Complete Time: 18:22 kb 08/22 17:42 Order name: Lipase; Complete Time: 18:22 kb 08/22 17:42 Order name: Procalcitonin; Complete Time: 18:46 kb 08/22 17:42 Order name: Protime (+inr); Complete Time: 18:18 kb 08/22 17:42 Order name: Ptt, Activated; Complete Time: 18:18 kb 08/22 17:42 Order name: Troponin (emerg Dept Use Only); Complete Time: 18:22 kb 08/22 17:42 Order name: Urine Microscopic Only; Complete Time: 20:20 kb 08/22 17:42 Order name: Chest Single View XRAY; Complete Time: 19:15 kb 08/22 17:42 Order name: D-Dimer; Complete Time: 18:18 kb 08/22 17:43 Order name: Basic Metabolic Panel; Complete Time: 18:22 EDMS 08/22 17:43 Order name: Blood Culture EDWV 08/22 18:23 Order name: CT Chest For PE Angio; Complete Time: 19:15 kb 08/22 20:09 Order name: Urine Dipstick--Ancillary (enter results) ar5 08/22 20:09 Order name: Urine Dipstick-Ancillary; Complete Time: 20:33 EDMS 08/22 20:21 Order name: Urine Culture EDWV 08/22 21:43 Order name: Comprehensive Metabolic Panel [facility] 08/22 17:42 Order name: Cardiac monitoring; Complete Time: 17:50 kb 08/22 17:42 Order name: EKG - Nurse/Tech; Complete Time: 17:50 kb 08/22 17:42 Order name: IV Saline Lock - Large Bore; Complete Time: 17:50 kb 08/22 17:42 Order name: Labs collected and sent; Complete Time: 17:50 kb 08/22 17:42 Order name: O2 Per Protocol; Complete Time: 17:51 kb 08/22 17:42 Order name: O2 Sat Monitoring; Complete Time: 17:51 kb 08/22 17:42 Order name: Urine Dipstick-Ancillary (obtain specimen); Complete Time: 20:16 kb 08/22 21:44 Order name: CONS Pharmacy Consult EDMS 08/22 21:44 Order name: NPO EDMS EC:16 Rate is 119 beats/min. Rhythm is regular. QRS [place] is Normal. OR interval is normal at kb 152 msec. QRS interval is normal at 76 msec. QT interval is normal. Clinical impression: Sinus tachycardia. Interpreted by me. Reviewed by me. Administered Medications: 18:00 Drug: NS 0.9% 1000 ml Route: IV; Rate: 1000 ml; Site: right antecubital; aa5 19:56 Follow up: IV Status: Completed infusion; IV Intake: 1000ml ak1 18:37 Drug: Ibuprofen 600 mg Route: PO; aa5 21:31 Follow up: Response: No adverse reaction ak1 19:53 Drug: NS 0.9% 1000 ml Route: IV; Rate: 1000 ml; Site: right antecubital; ak1 21:30 Follow up: IV Status: Completed infusion; IV Intake: 1000ml ak1 19:56 Drug: Tylenol 650 mg Route: PO; ak1 21:31 Follow up: BP 103 / 61; Pulse 118 bpm; Resp 24 bpm; Pulse Ox 93% 2 lpm Nasal Cannula ak1 20:57 Drug: Xopenex 1.25 mg Route: Inhalation; ak1 20:57 Drug: AtroVENT Aerosol 0.5 mg Route: Inhalation; ak1 20:57 Drug: Rocephin 1 grams Route: IV; Rate: calculated rate; Site: right antecubital; ak1 21:30 Follow up: IV Status: Completed infusion ak1 20:57 Drug: Zithromax 500 mg Route: IVPB; Infused Over: 1 hrs; Site: right antecubital; ak1 22:03 Follow up: IV Status: Completed infusion; IV Intake: 250ml ak1 21:49 Drug: fentaNYL (PF) 25 mcg Route: IVP; Site: left hand; jd3 Disposition: 08/22/18 20:34 Hospitalization ordered by Yani Ba for Inpatient Admission. Preliminary diagnosis are Pneumonia, unspecified organism, Tachycardia, unspecified. - Bed requested for Telemetry/MedSurg (Inpatient). - Status is Inpatient Admission. ak1 - Condition is Stable. - Problem is new. - Symptoms are unchanged. UTI on Admission? No Addendum: 08/25/2018 07:07 Co-signature as Attending Physician, Juan Oliver MD. r n Signatures: Dispatcher [employer] EDMS Mely Birch, JENNIFER-C ORTHODONTIC LABORATORY TECHNICIAN-Ckb Juan Oliver MD MD rn Calderon, Audri, RN RN aa5 Yaya Peaz RN RN la1 Dorota Harris RN RN ak1 Brent Castillo RN RN jd3 Angie Davis ar5 Corrections: (The following items were deleted from the chart) 08/22 20:23 20:14 Counseling: I had a detailed discussion with the patient and/or guardian kb regarding: the historical points, exam findings, and any diagnostic results supporting the discharge/admit diagnosis, lab results, radiology results, the need for outpatient follow up, a family practitioner, to return to the emergency department if symptoms worsen or persist or if there are any questions or concerns that arise at home, kb 20:23 20:14 ED course: Pt would like to go home. Reports she will return for worsening kb symptoms or any other concerns, but doesn't see the need to stay in the hospital. States she just wanted to make sure she didn't have pneumonia. kb 21:47 20:34 Hospitalization Ordered by Yani Ba MD for Inpatient Admission. Preliminary ar5 diagnosis is Pneumonia, unspecified organism; Tachycardia, unspecified. Bed requested for Telemetry/MedSurg (Inpatient). Status is Inpatient Admission. Condition is Stable. Problem is new. Symptoms are unchanged. UTI on Admission? No. jono 22:32 21:47 08/22/2018 20:34 Hospitalization Ordered by Yani Ba MD for Inpatient ak1 Admission. Preliminary diagnosis is Pneumonia, unspecified organism; Tachycardia, unspecified. Bed requested for Telemetry/MedSurg (Inpatient). Status is Inpatient Admission. Condition is Stable. Problem is new. Symptoms are unchanged. UTI on Admission? No. ar5
[2018-08-22] MEDS ORDERED: IPRATROPIUM BROM 0.5MG/2.5ML ONE (20:51)
[2018-08-22] MEDS ORDERED: NA CHLORIDE 0.9% 250 ML ONE (20:52)
[2018-08-22] MEDS ORDERED: LEVALBUTEROL 1.25 MG/3 ML NEB ONE (20:52)
[2018-08-22] MEDS ORDERED: CEFTRIAXONE/SWI 1gm 1 GM/10 ML SYR ONE (20:52)
[2018-08-22] MEDS ORDERED: AZITHROMYCIN 500 MG INJ IVPB ONE (20:52)
[2018-08-22] MEDS ORDERED: ACETAMINOPHEN 500 MG TAB PO PRN (21:41)
[2018-08-22] MEDS ORDERED: MORPHINE 2 MG/ML SYR IV PRN (21:41)
[2018-08-22] MEDS ORDERED: ONDANSETRON 4 MG/2 ML VIAL IV PRN (21:41)
[2018-08-22] MEDS ORDERED: FENTANYL CITR 100 MCG/2 ML ONE (21:56)
[2018-08-23 00:16] VITALS: BMI 26.1
[2018-08-23] MEDS: METHYLPREDNISOLONE 40 MG INJ IV SCH ×3 (00:41→16:54)
[2018-08-23 05:37] VITALS: O2SAT 95
[2018-08-23 06:30] LABS: Absolute Lymphocytes (CBC) 0.6 K/uL (0.7-4.9); Absolute Monocytes 0.2 K/uL (0.1-1.3); Absolute Neutrophil 12.6 K/uL (1.8-8.0); Basophils % 0.1 % (0-1.3); Hematocrit 38.7 % (36.0-45.0); Lymphocytes % 4.8 % (15.3-44.8); MPV 8.8 fL (7.6-11.3); Monocytes % 1.6 % (3.3-12.3); RBC Red Blood Cell Count 4.13 M/uL (3.86-4.86)
[2018-08-23 06:55] LABS: Albumin 2.8 g/dL (3.4-5.0); Bilirubin Total 1.3 mg/dL (0.2-1.0); Potassium 3.7 mmol/L (3.5-5.1); Protein, Total 6.1 g/dL (6.4-8.2)
[2018-08-23 07:09] LABS: Blood Morphology Comment NOT SEEN (NOT SEEN); Platelet Estimate ADEQ; Urine White Blood Cell Casts OK
--- NOTE | 2018-08-23 08:51 | P.HP ---
Certification for Inpatient Patient admitted to: Inpatient With expected LOS: >2 Midnights Patient will require the following post-hospital care: None Practitioner: I am a practitioner with admitting privileges, knowledge of patient current condition, hospital course, and medical plan of care. Services: Services provided to patient in accordance with Admission requirements found in Title 42 Section 412.3 of the Code of Federal Regulations Patient History Date of Service: 08/22/18 Reason for admission: INTERSTITIAL PNEUMONIA History of Present Illness: Patient is an 87-year-old female came into the hospital with fever, cough, and shortness of breath. She was doing okay but at sure she started feeling bad. She went home and tried to rest but her symptoms worsened. He decided to come into the hospital because she was feeling a little short winded. In the emergency room she was found to be tachycardic. She will be started on IV fluids and IV antibiotics. Will admit her to the hospital for further evaluation. She has had a strong association with secondhand smoke. Her father smoked when she was young and she is to a gentleman who smoked his whole life. She will need further evaluation in the hospital, and that she has systemic inflammatory response syndrome she will be admitted for inpatient hospitalization. Allergies Penicillins Allergy (Mild, Verified 04/02/15 09:13) UNKNOWN Sulfa (Sulfonamide Antibiotics) [Sulfa(Sulfonamide Antibiotics)] Allergy (Mild, Verified 04/02/15 09:13) UNKNOWN Home Medications: Irbesartan [Avapro*] 150 mg PO DAILY 04/02/15 Omeprazole [Prilosec] 20 mg PO DAILY 04/02/15 - Past Medical/Surgical History Has patient received pneumonia vaccine in the past: Yes Diabetic: No -: History of liver cancer -: Hypertension -: Gastroesophageal reflux disease -: History of PE when patient was on chemotherapy -: History of colon cancer -: Partial colectomy -: Liver surgery - Family History Father Medical History: Heart disease Mother Medical History: Other (see notes) Brother Medical History: Blood disorders - Social History Smoking Status: Never smoker Alcohol use: No CD- Drugs: No Caffeine use: No Place of Residence: Home Review of Systems 10-point ROS is otherwise unremarkable Physical Examination - Vital Signs Temperature: 98.1 F Blood Pressure: 101/63 Pulse: 74 Respirations: 16 Pulse Ox (%): 97 - Physical Exam General: Alert, In no apparent distress, Oriented x3 HEENT: Atraumatic, PERRLA, Mucous membr. moist/pink, EOMI, Sclerae nonicteric Neck: Supple, 2+ carotid pulse no bruit, No LAD, Without JVD or thyroid abnormality Respiratory: Other (Course breath sounds with rhonchi) Cardiovascular: Regular rate/rhythm, Normal S1 S2, No murmurs Gastrointestinal: Normal bowel sounds, Soft and benign, Non-distended, No tenderness Musculoskeletal: No clubbing, No swelling, No tenderness Integumentary: No rashes Neurological: Normal gait, Normal speech, Normal strength at 5/5 x4 extr, Normal tone, Sensation intact, Cranial nerves 3-12 intact, Normal affect Lymphatics: No axilla or inguinal lymphadenopathy - Studies Laboratory Data (last 24 hrs) 08/22/18 17:40: PT 12.6 H, INR 1.07, APTT 26.5 08/22/18 17:40: WBC 11.5 H, Hgb 14.6, Hct 43.9, Plt Count 218 08/22/18 17:40: Sodium 140, Potassium 3.7, BUN 21 H, Creatinine 0.70, Glucose 100, Total Bilirubin 1.3 H, AST 69 H, ALT 60, Alkaline Phosphatase 301 H, Lipase 178 Microbiology Data (last 24 hrs): 08/22/18 17:30 Nasopharnyx Influenza Type A Antigen Screen - Final 08/22/18 17:30 Nasopharnyx Influenza Type B Antigen Screen - Final Assessment & Plan - Problems (Diagnosis) (1) Interstitial pneumonia Current Visit: Yes Status: Acute (2) Second hand smoke exposure Current Visit: Yes Status: Acute (3) History of colon cancer Current Visit: No Status: Acute (4) Hypertension Onset Date: 11/26/16 Current Visit: No Status: Chronic Qualifiers: - Plan 1. Continue with IV antibiotics 2. Awaiting sputum and blood culture 3. Repeat chest x-ray 4. Will proceed with CT scan of the chest 5. Pulmonary consultation if symptoms worsen 6. Continue with nebs as needed 7. O2 per protocol 8. Continue with gentle hydration 9. Repeat labs including CBC and renal function in a.m. 10. GI and DVT prophylaxis Discharge Plan: Home Plan to discharge in: Greater than 2 days - Advance Directives Does patient have a Living Will: No Does patient have a Durable POA for Healthcare: Yes - Code Status/Comfort Care Code Status Assessed: Yes Code Status: Full Code Critical Care: No Time Spent Managing PTS Care (In Minutes): 45
[2018-08-23] MEDS: AZITHROMYCIN IV 500 MG in NA CHLORIDE 0.9% 250 ML IVPB SCH ×2 (09:00→09:57)
[2018-08-23] MEDS ORDERED: CEFTRIAXONE 1 GM/NS 50 ML 1 GM/50 ML BAG IV SCH (09:00)
[2018-08-23] MEDS: CEFTRIAXONE/SWI 1gm 1 GM/10 ML SYR IV SCH ×2 (09:57→21:22)
--- NOTE | 2018-08-23 17:17 | P.PN ---
Subjective Date of Service: 08/23/18 Chief Complaint: INTERSTITIAL PNEUMONIA no overnight events ,pt seen and examined saturating well on room air continue zithromax and rocephin for now labs reviewed Review of Systems 10-point ROS is otherwise unremarkable Physical Examination - Vital Signs Temperature: 97.6 F Blood Pressure: 116/66 Pulse: 64 Respirations: 18 Pulse Ox (%): 95 - Physical Exam General: Alert, Oriented x3 HEENT: Atraumatic, Normocephalic, PERRLA Neck: JVD not distended Respiratory: Clear to auscultation bilaterally, Normal air movement Cardiovascular: Regular rate/rhythm, Normal S1 S2 Gastrointestinal: Normal bowel sounds, Soft and benign, Non-distended Integumentary: No rashes Neurological: Normal strength at 5/5 x4 extr - Studies Laboratory Data (last 24 hrs) 08/22/18 17:40: PT 12.6 H, INR 1.07, APTT 26.5 08/22/18 17:40: WBC 11.5 H, Hgb 14.6, Hct 43.9, Plt Count 218 08/22/18 17:40: Sodium 140, Potassium 3.7, BUN 21 H, Creatinine 0.70, Glucose 100, Total Bilirubin 1.3 H, AST 69 H, ALT 60, Alkaline Phosphatase 301 H, Lipase 178 Microbiology Data (last 24 hrs): 08/22/18 17:30 Nasopharnyx Influenza Type A Antigen Screen - Final 08/22/18 17:30 Nasopharnyx Influenza Type B Antigen Screen - Final Assessment And Plan - Current Problems (Diagnosis) (1) Interstitial pneumonia Current Visit: Yes Status: Acute (2) Second hand smoke exposure Current Visit: Yes Status: Acute (3) History of colon cancer Current Visit: No Status: Acute (4) History of liver cancer Current Visit: No Status: Chronic (5) Hypertension Onset Date: 11/26/16 Current Visit: No Status: Chronic Qualifiers: - Plan URTI continue iv abx for now O 2 therpay prn nebulizers prn f/up cultures GI and DVt ppx Discharge Plan: Home Plan to discharge in: 24 Hours
[2018-08-23] MEDS: PANTOPRAZOLE 40MG TABLET PO SCH (18:30)
[2018-08-23] MEDS: CETIRIZINE HCL 5 MG TABLET PO SCH (18:30)
[2018-08-24] MEDS: METHYLPREDNISOLONE 40 MG INJ IV SCH ×2 (00:22→09:58)
[2018-08-24] MEDS: PANTOPRAZOLE 40MG TABLET PO SCH (05:17)
[2018-08-24] MEDS ORDERED: AZITHROMYCIN 250 MG TAB PO SCH (09:00)
[2018-08-24] MEDS: CEFTRIAXONE/SWI 1gm 1 GM/10 ML SYR IV SCH (09:58)
[2018-08-24] MEDS: CETIRIZINE HCL 5 MG TABLET PO SCH (10:00)
[2018-08-24 10:13] LABS: Absolute Lymphocytes (CBC) 0.7 K/uL (0.7-4.9); Absolute Monocytes 0.2 K/uL (0.1-1.3); Absolute Neutrophil 13.6 K/uL (1.8-8.0); Basophils % 0.1 % (0-1.3); Hematocrit 40.5 % (36.0-45.0); Lymphocytes % 4.8 % (15.3-44.8); MPV 9.3 fL (7.6-11.3); Monocytes % 1.5 % (3.3-12.3); RBC Red Blood Cell Count 4.36 M/uL (3.86-4.86)
[2018-08-24 10:29] LABS: Bilirubin Total 0.7 mg/dL (0.2-1.0); Potassium 3.6 mmol/L (3.5-5.1); Protein, Total 6.8 g/dL (6.4-8.2)
[2018-08-24 12:34] VITALS: BP 120/85; TEMP 97.1
--- NOTE | 2018-08-24 22:38 | P.DS ---
Admission Date: 08/22/18 Discharge Date: 08/24/18 Disposition: ROUTINE DISCHARGE Reason for Admission: INTERSTITIAL PNEUMONIA - Problems (1) Interstitial pneumonia Status: Acute (2) Second hand smoke exposure Status: Acute (3) History of colon cancer Status: Acute (4) History of liver cancer Status: Chronic (5) Hypertension Onset Date: 11/26/16 Status: Chronic Qualifiers: Brief History of Present Illness: 87 y/o woman presented to the ER with cough,fever and SOB ,pt was admitted for interstitial PNA and was managed with IV abx pt breathing status improved and coughand fever resolved on the day of dc pt denied any SOB,CP or palpitation pt is clinically and hemodynimically stable for dc assessment/plan: URTI IV abx nebulizers f/up cultures UTI Ucx growing klebsiealla pna discharge instructions: diet low sodium activity as tolerated f/up with pcp in 1 week Hospital Course: as above Vital Signs/Physical Exam: Temp Pulse Resp BP Pulse Ox 97.1 F 68 18 120/85 97 08/24/18 12:00 08/24/18 12:00 08/24/18 12:00 08/24/18 12:00 08/24/18 12:00 Laboratory Data at Discharge: WBC 14.5 K/uL (4.3-10.9) H 08/24/18 09:29 Hgb 13.7 g/dL (12.0-15.0) 08/24/18 09:29 Hct 40.5 % (36.0-45.0) 08/24/18 09:29 Plt Count 217 K/uL (152-406) D 08/24/18 09:29 PT 12.6 SECONDS (9.5-12.5) H 08/22/18 17:40 INR 1.07 08/22/18 17:40 APTT 26.5 SECONDS (24.3-36.9) 08/22/18 17:40 Sodium 142 mmol/L (136-145) 08/24/18 09:29 Potassium 3.6 mmol/L (3.5-5.1) 08/24/18 09:29 BUN 20 mg/dL (7-18) H 08/24/18 09:29 Creatinine 0.77 mg/dL (0.55-1.3) 08/24/18 09:29 Glucose 174 mg/dL (74-106) H 08/24/18 09:29 Total Bilirubin 0.7 mg/dL (0.2-1.0) 08/24/18 09:29 AST 50 U/L (15-37) H 08/24/18 09:29 ALT 51 U/L (12-78) 08/24/18 09:29 Alkaline Phosphatase 229 U/L (45-117) H 08/24/18 09:29 Lipase 178 U/L (73-393) 08/22/18 17:40 Home Medications: Irbesartan [Avapro*] 150 mg PO DAILY 04/02/15 Omeprazole [Prilosec] 20 mg PO DAILY 04/02/15 Cetirizine HCl [Zyrtec] 10 mg PO DAILY 08/23/18 Levofloxacin [Levaquin] 500 mg PO DAILY 5 Days #5 tablet 08/24/18 Methylprednisolone [Medrol dosepack] 4 mg PO DIRECTED #1 jorje 08/24/18 New Medications: Levofloxacin [Levaquin] 500 mg PO DAILY 5 Days #5 tablet Methylprednisolone [Medrol dosepack] 4 mg PO DIRECTED #1 jorje Patient Discharge Instructions: f/up with pcp for continuation of care Followup: Crystal Garcia DO [Primary Care Provider] - 1 Week (Call to schedule an appointment )
--- NOTE | 2018-08-31 11:01 | EKG ---
Test Date: 2018-08-22 Test Time: 17:55:27 Power System Operator: LIZBET MEASUREMENT RESULTS: Intervals: Rate: 119 MI: 152 QRSD: 76 QT: 298 QTc: 419 [place]: P: 38 MI: 152 QRS: -17 T: 49 INTERPRETIVE STATEMENTS: Sinus tachycardia with premature supraventricular complexes and with occasional premature ventricular complexes Low voltage QRS Borderline ECG Compared to ECG 11/25/2016 09:34:32 Atrial premature complex(es) now present Low QRS voltage now present Myocardial infarct finding no longer present Electronically Signed On 08-23-18 12:01:42 CDT by Caesar Brenner
== END 2018-08-24 13:17 | disposition home or self-care (01) ==
LOC: ER 17:01 → ERHOLD 21:49 → INTOOBSV 21:49 → 4TH 22:07
PROVIDERS: ADMIT Hospitalist; ATTEND Hospitalist
DX: J84.9 Interstitial pulmonary disease, unspecified (principal); I10 Essential (primary) hypertension; K21.9 Gastro-esophageal reflux disease without esophagitis; Z85.038 Personal history of other malignant neoplasm of large intestine; Z77.22 Contact with and (suspected) exposure to environmental tobacco smoke (acute) (chronic); Z85.05 Personal history of malignant neoplasm of liver; Z88.0 Allergy status to penicillin; Z88.2 Allergy status to sulfonamides; Z90.49 Acquired absence of other specified parts of digestive tract
CPT/HCPCS: 96365; 96361; 96368; 93005; 87040 ×2; 87088; 85025 ×3; 87086; 80048; 36415 ×2; 82550; 87205 ×2; 85610; 85379; 80076; 83605; 85730; 87077 ×2; 87186 ×2; 84484; 82553; 83690; 80053 ×2; 84145; 87804 ×2; 71275; 71045; 96375; 99285; Q9967; J0456 ×3; J3010; J0696 ×4; J7030 ×2; J2920 ×5; G0378 ×2; 81003; 81015

== ENCOUNTER 2019-03-26 10:47 | Inpatient (IN) | payer OTHER ==
[2019-03-26] MEDS ORDERED: LEVALBUTEROL 1.25 MG/3 ML NEB ONE (11:15)
[2019-03-26] MEDS ORDERED: NA CHLORIDE 0.9% 1,000 ML ONE ×4 (11:38→15:33)
[2019-03-26 11:48] LABS: Absolute Lymphocytes (CBC) 0.9 K/uL (0.7-4.9); Basophils % 0.1 % (0-1.3); Hematocrit 40.8 % (36.0-45.0); Lymphocytes % 6.3 % (15.3-44.8); MPV 8.5 fL (7.6-11.3); RBC Red Blood Cell Count 4.41 M/uL (3.86-4.86)
[2019-03-26 11:56] LABS: Protime INR 1.33
[2019-03-26] MEDS ORDERED: METOPROLOL TAR 25 MG TAB ONE (11:57)
[2019-03-26 12:09] LABS: Albumin 2.5 g/dL (3.4-5.0); Bilirubin Direct 1.3 mg/dL (0-0.2); Bilirubin Total 2.7 mg/dL (0.2-1.0); Magnesium 2.5 mg/dL (1.8-2.4); Potassium 3.3 mmol/L (3.5-5.1); Protein, Total 6.7 g/dL (6.4-8.2); Troponin (Emerg Dept Use Only) 0.04 ng/mL (0.0-0.045)
[2019-03-26 13:38] LABS: Urine Blood 3+ (NEG); Urine Glucose NEGATIVE (NEG); Urine Protein NEGATIVE (NEG); Urine pH 5.5 (5.0-7.0)
--- NOTE | 2019-03-26 14:46 | RAD REPORT ---
EXAM DESCRIPTION: CT - Thorax W/ Con - 03/26/2019 2:17 pm CLINICAL HISTORY: sob COMPARISON: July 2018 TECHNIQUE: Computed axial tomography of the chest was obtained. 100 cc Isovue 300 was administered i ntravenously. All CT scans are performed using dose optimization technique as appropriate and may include automated exposure control or mA/KV adjustment according to patient size. FINDINGS: Mild right lower lobe opacities. Small rectangular opacity right upper lobe probably atele ctasis. A few areas of scarring or subsegmental atelectasis bilaterally The small fluid collection anterior to the ascending thoracic aorta is unchanged and likely benign. N o mediastinal or hilar lymphadenopathy seen. Minimal right pleural effusion. . A pericardial effusion is not seen. Small to moderate hiatal hernia IMPRESSION: Mild right lower lobe opacities may represent a mild pneumonia or atelectasis Minimal right pleural effusion
[2019-03-26] MEDS ORDERED: Levofloxacin 750mg IV 750 MG/150 ML BAG IV ONE (15:03)
--- NOTE | 2019-03-26 15:03 | RAD REPORT ---
EXAM DESCRIPTION: CT - Abdomen Pelvis W Contrast - 03/26/2019 2:39 pm CLINICAL HISTORY: Abdominal pain COMPARISON: June 2018 TECHNIQUE: Computed axial tomography of the abdomen pelvis was obtained. 100 cc Isovue-300 was admin istered intravenously. Oral contrast was not requested which limits evaluation of bowel. All CT scans are performed using dose optimization technique as appropriate and may include automated exposure control or mA/KV adjustment according to patient size. FINDINGS: A centimeter hepatic cyst containing a septation has mildly increased in size. It previous ly measured 13.5 centimeters Pericardiac cyst Cholecystectomy 6.7 centimeter left renal parapelvic cyst. Spleen, pancreas, adrenal and left kidney appear unremarkable. There is no evidence of diverticulitis. Hysterectomy. Right hemicolectomy. No ascites. No omental/mes enteric nodules IMPRESSION: Mild enlargement of a 14 centimeter hepatic cyst.
--- NOTE | 2019-03-26 15:05 | RAD REPORT ---
EXAM DESCRIPTION: Raoul Single View03/26/2019 11:55 am CLINICAL HISTORY: Shortness of breath COMPARISON: August 2018 FINDINGS: Elevation right hemidiaphragm Mild right basilar opacity Areas subsegmental axis mid right lung. Left lung appears clear of acute infiltrate. The heart is normal size IMPRESSION: Mild right basilar opacity may represent pneumonia or atelectasis
--- NOTE | 2019-03-26 15:34 | ER ---
Nurse's Notes [facility] Name: Beryl Diaz Age: 88 yrs Sex: Female : 1930 Arrival Date: 03/26/2019 Time: 10:50 Bed 5 Private MD: Diagnosis: Unspecified atrial fibrillation;Pneumonia in diseases classified elsewhere Presentation: 03/26 11:07 Presenting complaint: Patient states: generalized weakness since Thursday, difficulty iw breathing , lower chest pain under ribs, not feeling well, denies cough or fever , hx of copd. Transition of care: patient was not received from another setting of care. Onset of symptoms was March 21, 2019. Risk Assessment: Do you want to hurt yourself or someone else? Patient reports no desire to harm self or others. Initial Sepsis Screen: Does the patient meet any 2 criteria? No. Patient's initial sepsis screen is negative. Does the patient have a suspected source of infection? No. Patient's initial sepsis screen is negative. Care prior to arrival: None. 11:07 Method Of Arrival: Wheelchair iw 11:07 Acuity: TIBURCIO 2 iw Historical: - Allergies: 11:12 PENICILLINS (rash); iw 11:12 Sulfa (Sulfonamide Antibiotics) (rash); iw - Home Meds: 11:12 Avapro 150 mg Oral tab 1 tab once daily [Active]; Prilosec 20 mg Oral cpDR 1 cap once iw daily [Active]; aspirin 81 mg Oral chew 1 tab once daily [Active]; Fish Oil 1,000 mg Oral cap daily [Active]; CoQ-10 100 mg Oral cap daily [Active]; calcium carbonate 600 mg (1,500 mg) Oral tab daily [Active]; 11:14 Vitamin D 2000 units Oral daily [Active]; Zyrtec 10 mg Oral chew 1 tab once daily iw [Active]; - PMHx: 11:12 allergies; Hypertension; iw - PSHx: 11:12 Tonsillectomy; Adenoids; Appendectomy; Hysterectomy; Tubal ligation; left cataract iw surgery; wrist fracture surgery; liver resection; - Immunization history:: Adult Immunizations up to date. - Social history:: Smoking status: Patient/guardian denies using tobacco. - Ebola Screening: : Patient negative for fever greater than or equal to 101.5 degrees Fahrenheit, and additional compatible Ebola Virus Disease symptoms Patient denies exposure to infectious person Patient denies travel to an Ebola-affected area in the 21 days before illness onset No symptoms or risks identified at this time. Screenin:50 Abuse screen: Denies threats or abuse. Denies injuries from another. Nutritional jl7 screening: No deficits noted. Tuberculosis screening: No symptoms or risk factors identified. Fall Risk Fall in past 12 months (25 points). No secondary diagnosis (0 pts). IV access (20 points). Ambulatory Aid- None/Bed Rest/Nurse Assist (0 pts). Gait- Weak (10 pts.). Mental Status- Oriented to own ability (0 pts). Total Davis Fall Scale indicates High Risk Score (45 or more points). Fall prevention measures have been instituted. Side Rails Up X 2 Placed Close to Nursing Station Frequent Obs/Assessments Occuring Family Present and informed to notify staff if the need to leave the bedside As available patient and family educated on Fall Prevention Program and Strategies. Assessment: 11:20 General: Appears in no apparent distress. uncomfortable, Behavior is calm, cooperative, jl7 appropriate for age. Pain: Complains of pain in low back area Pain does not radiate. Pain currently is 6 out of 10 on a pain scale. Quality of pain is described as aching, Pain began 2-3 days ago. Is continuous. Neuro: Level of Consciousness is awake, alert, obeys commands, Oriented to person, place, time, situation. Cardiovascular: Heart tones present Patient's skin is warm and dry. Rhythm is irregular. Respiratory: Airway is patent Respiratory effort is even, labored, Respiratory pattern is symmetrical, tachypnea Breath sounds are clear in right upper lobe and left upper lobe. GI: No signs and/or symptoms were reported involving the gastrointestinal system. : No signs and/or symptoms were reported regarding the genitourinary system. EENT: Reports post nasal drip. Derm: Skin is pink, warm \T\ dry. 11:25 Reassessment: Pt's O2 at 88%, Xopenex treatment started. EKG done with HR 160s, given jl7 to WASHINGTON Thorne ordered to stop Xopenex. WASHINGTON Thorne and Dr. Oliver at bedside. 12:30 Reassessment: Patient appears in no apparent distress at this time. Patient and/or jl7 family updated on plan of care and expected duration. Pain level reassessed. Patient is alert, oriented x 3, equal unlabored respirations, skin warm/dry/pink. Patient states feeling better. Patient states symptoms have improved. 13:30 Reassessment: Patient appears in no apparent distress at this time. No changes from jl7 previously documented assessment. Patient and/or family updated on plan of care and expected duration. Pain level reassessed. Patient is alert, oriented x 3, equal unlabored respirations, skin warm/dry/pink. 14:43 Reassessment: pt returned from CT, denies discomfort, awaiting radiology results. jl7 15:10 Reassessment: Patient appears in no apparent distress at this time. Patient and/or jl7 family updated on plan of care and expected duration. Pain level reassessed. Patient is alert, oriented x 3, equal unlabored respirations, skin warm/dry/pink. 15:35 Reassessment: Dr. Araya at bedside discussing plan of care. jl7 16:28 Reassessment: Pt laying in bed, respirations even and unlabored, no signs of distress jl7 noted, friends remain at bedside. Vital Signs: 11:15 BP 103 / 85; Pulse 92; Resp 22 S; Temp 97.2; Pulse Ox 96% on R/A; Weight 68.04 kg; iw Height 5 ft. 3 in. (160.02 cm); Pain 4/10; 11:40 BP 81 / 56; Pulse 157; Resp 22 S; iw 11:46 BP 95 / 59; Pulse 144; Resp 22 S; Pulse Ox 95% on 2 lpm NC; iw 11:55 BP 90 / 72; Pulse 154; Resp 28 S; Pulse Ox 94% on 2 lpm NC; Pain 6/10; jl7 12:00 BP 96 / 52; Pulse 160; Resp 29 S; Pulse Ox 100% on 2 lpm NC; jl7 12:21 BP 105 / 80; Pulse 137; Resp 27 S; Pulse Ox 100% on 2 lpm NC; jl7 12:30 BP 82 / 46; Pulse 109; Resp 27 S; Pulse Ox 99% on 2 lpm NC; jl7 12:35 BP 62 / 43; Pulse 112; Resp 29 S; Pulse Ox 99% on 2 lpm NC; jl7 12:45 BP 98 / 44; Pulse 99; Resp 26 S; Pulse Ox 100% on 2 lpm NC; jl7 13:02 BP 97 / 61; Pulse 76; Resp 19 S; Pulse Ox 98% on 2 lpm NC; jl7 13:15 BP 106 / 54; Pulse 94; Resp 19 S; Pulse Ox 96% on 2 lpm NC; jl7 13:30 BP 99 / 59; Pulse 95; Resp 17 S; Pulse Ox 96% on 2 lpm NC; jl7 14:00 BP 100 / 71; Pulse 93; Resp 19 S; Pulse Ox 98% on 2 lpm NC; jl7 14:48 BP 104 / 71; Pulse 88; Resp 18 S; Pulse Ox 96% on 2 lpm NC; jl7 15:09 BP 115 / 71; Pulse 81; Resp 17 S; Pulse Ox 98% on 2 lpm NC; jl7 15:30 BP 100 / 62; Pulse 82; Resp 19 S; Pulse Ox 97% on 2 lpm NC; jl7 15:45 BP 96 / 45; Pulse 62; Resp 18 S; Pulse Ox 96% on 2 lpm NC; jl7 16:15 BP 95 / 62; Pulse 91; Resp 17 S; Pulse Ox 96% on 2 lpm NC; jl7 17:00 BP 104 / 61; Pulse 87; Resp 24 S; Pulse Ox 93% on 2 lpm NC; jl7 11:15 Body Mass Index 26.57 (68.04 kg, 160.02 cm) ED Course: 10:50 Patient arrived in ED. as 10:56 Mati Villeda PA is PHCP. [facility] 10:56 Juan Oliver MD is Attending Physician. [facility] 11:09 Triage completed. iw 11:12 Zeb Ku, RERE is Primary Nurse. jl7 11:16 Arm band placed on. iw 11:50 Patient has correct armband on for positive identification. Placed in gown. Bed in low jl7 position. Call light in reach. Side rails up X 1. awake overnight monitor on. Pulse ox on. NIBP on. Warm blanket given. 11:50 Initial lab(s) drawn, by md, sent to lab. First set of blood cultures drawn by me. jl7 Second set of blood cultures drawn by ED staff. Inserted saline lock: 20 gauge in left antecubital area, using aseptic technique. Blood collected. Inserted saline lock: 20 gauge in right forearm, using aseptic technique. Oxygen administration via nasal cannula \T\ 2L/min. 11:53 EKG done, by ED staff, reviewed by Mati DELAROSA. jl7 11:54 XRAY Chest (1 view) In Process Unspecified. EDMS 13:14 Urine collected: straight cath specimen, cloudy, tea colored, Amount Returned: 100mL. jl7 Straight cath inserted, using sterile technique, 16 Fr. Specimen obtained. Returned cloudy urine. Patient tolerated well. 14:17 CT Chest W/ Con In Process Unspecified. EDMS 14:37 CT Abd/Pelvis - IV Contrast Only In Process Unspecified. EDMS 15:29 Bismark Araya MD is Hospitalizing Provider. m 16:15 No provider procedures requiring assistance completed. Patient admitted, IV remains in jl7 place. intact, No redness/swelling at site. Administered Medications: 09:20 Drug: Xopenex (3) 1.25 mg Route: Inhalation; [facility] er 09:25 Follow up: Response: Other; Treatment stopped per ERP due to HR jl7 11:35 Drug: NS 0.9% 1000 ml Route: IV; Rate: 1 bolus; Site: right forearm; jl7 12:30 Follow up: IV Status: Completed infusion; IV Intake: 1000ml jl7 11:56 Drug: Metoprolol 25 mg Route: PO; jl7 12:45 Follow up: Response: No adverse reaction jl7 12:58 Follow up: Response: Cardiac rhythm changed jl7 12:35 Drug: NS 0.9% 1000 ml Route: IV; Rate: 1 bolus; Site: left forearm; jl7 13:30 Follow up: IV Status: Completed infusion; IV Intake: 1000ml jl7 13:17 Not Given (Other Intervention Used): NS 0.9% 500 ml IV at bolus once jl7 13:30 Drug: NS 0.9% 1000 ml Route: IV; Rate: 150 ml/hr; Site: right forearm; jl7 15:08 Follow up: Rate change 1000 bolus jl7 16:15 Follow up: Response: No adverse reaction; IV Status: Completed infusion; IV Intake: jl7 1000ml 15:08 Drug: LevaQUIN 750 mg Volume: 150 ml; Route: IVPB; Infused Over: 90 mins; Site: right mg2 antecubital; 16:30 Follow up: Response: No adverse reaction; IV Status: Completed infusion jl7 15:30 Drug: NS 0.9% 1000 ml Route: IV; Rate: 150 ml/hr; Site: right forearm; jl7 17:32 Follow up: IV Status: Infusion continued upon admission jl7 Intake: 12:30 IV: 1000ml; Total: 1000ml. jl7 13:30 IV: 1000ml; Total: 2000ml. jl7 16:15 IV: 1000ml; Total: 3000ml. jl7 Outcome: 15:33 Decision to Hospitalize by Provider. jagdeep 17:30 Admitted to Tele accompanied by tech, via wheelchair, room 430, with oxygen, with jl7 chart, Report called to RERE Pelletier 17:30 Condition: stable 17:30 Discharge instructions given to patient, Instructed on the need for admit, Demonstrated understanding of instructions. 17:32 Patient left the ED. jl7 Signatures: Dispatcher [employer] EDMS Mati Villeda PA PA jmm Martinez, Amelia as Williams, Irene, RN RN iw Zeb Ku RN RN jl7 Usman Brown RN RN mg2 Corrections: (The following items were deleted from the chart) 11:30 11:07 Acuity: TIBURCIO 3 iw iw 11:48 11:46 BP 95 / 59; Pulse 144bpm; Resp 24bpm; Spontaneous; Pulse Ox 95% 2 lpm Nasal iw Cannula; iw 12:08 11:20 Xopenex (3) 1.25 mg Inhalation jl7 jl7 14:59 13:02 BP 98 / 44; Pulse 76bpm; Resp 19bpm; Spontaneous; Pulse Ox 98% 2 lpm Nasal jl7 Cannula; jl7
--- NOTE | 2019-03-26 15:35 | EDPHYS ---
Physician Documentation [facility] Name: Beryl Diaz Age: 88 yrs Sex: Female : 1930 Arrival Date: 03/26/2019 Time: 10:50 Bed 5 Private MD: ED Physician Juan Oliver HPI: 03/26 11:23 This 88 yrs old Female presents to ER via Wheelchair with complaints of Chest jmm Pain, Breathing Difficulty. 11:23 The patient has shortness of breath with light activity. Onset: The symptoms/episode jmm began/occurred gradually, 3 day(s) ago. Duration: The symptoms are continuous. The patient's shortness of breath is aggravated by nothing, is alleviated by nothing. Associated signs and symptoms: Pertinent positives: chest pain, body aches. The patient has not experienced similar symptoms in the past. Historical: - Allergies: 11:12 PENICILLINS (rash); iw 11:12 Sulfa (Sulfonamide Antibiotics) (rash); iw - Home Meds: 11:12 Avapro 150 mg Oral tab 1 tab once daily [Active]; Prilosec 20 mg Oral cpDR 1 cap once iw daily [Active]; aspirin 81 mg Oral chew 1 tab once daily [Active]; Fish Oil 1,000 mg Oral cap daily [Active]; CoQ-10 100 mg Oral cap daily [Active]; calcium carbonate 600 mg (1,500 mg) Oral tab daily [Active]; 11:14 Vitamin D 2000 units Oral daily [Active]; Zyrtec 10 mg Oral chew 1 tab once daily iw [Active]; - PMHx: 11:12 allergies; Hypertension; iw - PSHx: 11:12 Tonsillectomy; Adenoids; Appendectomy; Hysterectomy; Tubal ligation; left cataract iw surgery; wrist fracture surgery; liver resection; - Immunization history:: Adult Immunizations up to date. - Social history:: Smoking status: Patient/guardian denies using tobacco. - Ebola Screening: : Patient negative for fever greater than or equal to 101.5 degrees Fahrenheit, and additional compatible Ebola Virus Disease symptoms Patient denies exposure to infectious person Patient denies travel to an Ebola-affected area in the 21 days before illness onset No symptoms or risks identified at this time. ROS: 12:02 Abdomen/GI: Negative for abdominal pain, nausea, vomiting, diarrhea, and constipation, [facility] Back: Negative for injury and pain. 12:02 Constitutional: Positive for body aches. 12:02 Cardiovascular: Positive for chest pain. 12:02 Respiratory: Positive for shortness of breath. 12:02 Neuro: Positive for weakness. 12:02 All other systems are negative. Exam: 12:02 Head/Face: atraumatic. Eyes: EOMI, no conjunctival erythema appreciated [facility] 12:02 Neck: Trachea midline, Supple Chest/axilla: Normal chest wall appearance and motion. 12:02 Abdomen/GI: Non distended, soft Back: Normal ROM Skin: General appearance color normal MS/ Extremity: Moves all extremities, no obvious deformities appreciated, no edema noted to the lower extremities Neuro: Awake and alert, normal gait Psych: Behavior is normal, Mood is normal, Patient is cooperative and pleasant 12:02 Constitutional: The patient appears in no acute distress, alert, awake. 12:02 ENT: Mouth: Oral mucosa: dry. 12:02 Cardiovascular: Rate: tachycardic. 12:02 Respiratory: mild respiratory distress is noted, Respirations: labored breathing, that is mild, Breath sounds: are clear throughout. Vital Signs: 11:15 BP 103 / 85; Pulse 92; Resp 22 S; Temp 97.2; Pulse Ox 96% on R/A; Weight 68.04 kg; iw Height 5 ft. 3 in. (160.02 cm); Pain 4/10; 11:40 BP 81 / 56; Pulse 157; Resp 22 S; iw 11:46 BP 95 / 59; Pulse 144; Resp 22 S; Pulse Ox 95% on 2 lpm NC; iw 11:55 BP 90 / 72; Pulse 154; Resp 28 S; Pulse Ox 94% on 2 lpm NC; Pain 6/10; jl7 12:00 BP 96 / 52; Pulse 160; Resp 29 S; Pulse Ox 100% on 2 lpm NC; jl7 12:21 BP 105 / 80; Pulse 137; Resp 27 S; Pulse Ox 100% on 2 lpm NC; jl7 12:30 BP 82 / 46; Pulse 109; Resp 27 S; Pulse Ox 99% on 2 lpm NC; jl7 12:35 BP 62 / 43; Pulse 112; Resp 29 S; Pulse Ox 99% on 2 lpm NC; jl7 12:45 BP 98 / 44; Pulse 99; Resp 26 S; Pulse Ox 100% on 2 lpm NC; jl7 13:02 BP 97 / 61; Pulse 76; Resp 19 S; Pulse Ox 98% on 2 lpm NC; jl7 13:15 BP 106 / 54; Pulse 94; Resp 19 S; Pulse Ox 96% on 2 lpm NC; jl7 13:30 BP 99 / 59; Pulse 95; Resp 17 S; Pulse Ox 96% on 2 lpm NC; jl7 14:00 BP 100 / 71; Pulse 93; Resp 19 S; Pulse Ox 98% on 2 lpm NC; jl7 14:48 BP 104 / 71; Pulse 88; Resp 18 S; Pulse Ox 96% on 2 lpm NC; jl7 15:09 BP 115 / 71; Pulse 81; Resp 17 S; Pulse Ox 98% on 2 lpm NC; jl7 15:30 BP 100 / 62; Pulse 82; Resp 19 S; Pulse Ox 97% on 2 lpm NC; jl7 15:45 BP 96 / 45; Pulse 62; Resp 18 S; Pulse Ox 96% on 2 lpm NC; jl7 16:15 BP 95 / 62; Pulse 91; Resp 17 S; Pulse Ox 96% on 2 lpm NC; jl7 17:00 BP 104 / 61; Pulse 87; Resp 24 S; Pulse Ox 93% on 2 lpm NC; 7 11:15 Body Mass Index 26.57 (68.04 kg, 160.02 cm) iw MDM: 10:59 Patient medically screened. [facility] 15:24 Data reviewed: vital signs, nurses notes, lab test result(s), EKG, radiologic studies, [facility] CT scan, plain films. ED course: VS stabilized after IVF and metoprolol. Patient administered levaquin IV in the ED. I discussed the patient with Dr. Araya whom accepted admission. . 03/26 11:13 Order name: Basic Metabolic Panel; Complete Time: 12:14 [facility] 03/26 11:13 Order name: CBC with Diff; Complete Time: 12:01 [facility] 03/26 11:13 Order name: LFT's; Complete Time: 12:14 [facility] 03/26 11:13 Order name: Magnesium; Complete Time: 12:14 [facility] 03/26 11:13 Order name: NT PRO-BNP; Complete Time: 12:14 [facility] 03/26 11:13 Order name: PT-INR; Complete Time: 12:14 [facility] 03/26 11:13 Order name: Troponin (emerg Dept Use Only); Complete Time: 12:14 [facility] 03/26 11:13 Order name: Lactate; Complete Time: 12:14 [facility] 03/26 11:13 Order name: Blood Culture Adult (2) [facility] 03/26 11:13 Order name: Procalcitonin; Complete Time: 12:40 [facility] 03/26 11:13 Order name: Flu; Complete Time: 12:07 [facility] 03/26 12:08 Order name: Urine Culture [facility] 03/26 13:18 Order name: Urine Dipstick--Ancillary (enter results); Complete Time: 13:58 [facility] 03/26 13:29 Order name: Lipase; Complete Time: 13:58 [facility] 03/26 11:13 Order name: XRAY Chest (1 view); Complete Time: 15:10 [facility] 03/26 11:13 Order name: EKG; Complete Time: 11:15 [facility] 03/26 11:13 Order name: Cardiac monitoring; Complete Time: 11:50 [facility] 03/26 11:13 Order name: EKG - Nurse/Tech; Complete Time: 11:50 [facility] 03/26 14:00 Order name: CT Chest W/ Con; Complete Time: 14:54 [facility] 03/26 14:16 Order name: CT Abd/Pelvis - IV Contrast Only; Complete Time: 15:10 [facility] 03/26 11:13 Order name: IV Saline Lock; Complete Time: 11:50 [facility] 03/26 11:13 Order name: Labs collected and sent; Complete Time: 11:50 [facility] 03/26 11:13 Order name: O2 Per Protocol; Complete Time: 11:50 [facility] 03/26 11:13 Order name: O2 Sat Monitoring; Complete Time: 11:50 [facility] Administered Medications: 09:20 Drug: Xopenex (3) 1.25 mg Route: Inhalation; jl7 09:25 Follow up: Response: Other; Treatment stopped per ERP due to HR jl7 11:35 Drug: NS 0.9% 1000 ml Route: IV; Rate: 1 bolus; Site: right forearm; jl7 12:30 Follow up: IV Status: Completed infusion; IV Intake: 1000ml jl7 11:56 Drug: Metoprolol 25 mg Route: PO; jl7 12:45 Follow up: Response: No adverse reaction jl7 12:58 Follow up: Response: Cardiac rhythm changed jl7 12:35 Drug: NS 0.9% 1000 ml Route: IV; Rate: 1 bolus; Site: left forearm; jl7 13:30 Follow up: IV Status: Completed infusion; IV Intake: 1000ml jl7 13:17 Not Given (Other Intervention Used): NS 0.9% 500 ml IV at bolus once jl7 13:30 Drug: NS 0.9% 1000 ml Route: IV; Rate: 150 ml/hr; Site: right forearm; jl7 15:08 Follow up: Rate change 1000 bolus jl7 16:15 Follow up: Response: No adverse reaction; IV Status: Completed infusion; IV Intake: jl7 1000ml 15:08 Drug: LevaQUIN 750 mg Volume: 150 ml; Route: IVPB; Infused Over: 90 mins; Site: right mg2 antecubital; 16:30 Follow up: Response: No adverse reaction; IV Status: Completed infusion jl7 15:30 Drug: NS 0.9% 1000 ml Route: IV; Rate: 150 ml/hr; Site: right forearm; jl7 17:32 Follow up: IV Status: Infusion continued upon admission jl7 Disposition: 17:40 Co-signature as Attending Physician, Juan Oliver MD. rn Disposition: 03/26/19 15:33 Hospitalization ordered by Bismark Araya for Inpatient Admission. Preliminary diagnosis are Unspecified atrial fibrillation, Pneumonia in diseases classified elsewhere. - Bed requested for Telemetry/MedSurg (Inpatient). - Status is Inpatient Admission. jl7 - Condition is Stable. - Problem is new. - Symptoms have improved. UTI on Admission? No Signatures: Dispatcher [employer] [facility] Jessica Shook RN RN dw Mickail, Joel, PA PA m Annie Eduardo, Juan Fortune RN, MD MD rn Leal, Jahala, RN RN jl7 Usman Brown RN RN mg2 Corrections: (The following items were deleted from the chart) 14:10 13:30 Chest For PE Angio+CT.RAD.BRZ ordered. EDHI EDMS 16:48 15:33 Hospitalization Ordered by Bismark Araya MD for Inpatient Admission. Preliminary dw diagnosis is Unspecified atrial fibrillation; Pneumonia in diseases classified elsewhere. Bed requested for Telemetry/MedSurg (Inpatient). Status is Inpatient Admission. Condition is Stable. Problem is new. Symptoms have improved. UTI on Admission? No. jmm 17:32 16:48 03/26/2019 15:33 Hospitalization Ordered by Bismark Araya MD for Inpatient jl7 Admission. Preliminary diagnosis is Unspecified atrial fibrillation; Pneumonia in diseases classified elsewhere. Bed requested for Telemetry/MedSurg (Inpatient). Status is Inpatient Admission. Condition is Stable. Problem is new. Symptoms have improved. UTI on Admission? No. dw
[2019-03-26] MEDS ORDERED: ONDANSETRON 4 MG/2 ML VIAL IV PRN (18:02)
[2019-03-26] MEDS ORDERED: METOPROLOL TARTRATE 5 MG/5 ML INJ IV PRN (18:02)
[2019-03-26] MEDS: Levofloxacin 750mg IV 750 MG/150 ML BAG IV SCH (18:02)
[2019-03-26 18:31] VITALS: BMI 26.5
[2019-03-26] MEDS ORDERED: ENOXAPARIN 60 MG/0.6 ML SQ SCH (19:00)
--- NOTE | 2019-03-26 19:30 | EKG ---
Test Date: 2019-03-26 Test Time: 11:26:02 Staff Midwife: ZI MEASUREMENT RESULTS: Intervals: Rate: 162 CT: QRSD: 66 QT: 262 QTc: 430 [place]: P: CT: QRS: -31 T: 26 INTERPRETIVE STATEMENTS: Atrial fibrillation with rapid ventricular response with premature ventricular or aberrantly conducted complexes Left axis deviation Low voltage QRS Inferior infarct, age undetermined Abnormal ECG Compared to ECG 08/22/2018 17:55:27 Left-axis deviation now present Myocardial infarct finding now present Sinus tachycardia no longer present Electronically Signed On 03-26-19 19:30:02 CDT by Caesar Brenner
[2019-03-26 19:32] LABS: Thyroid Stimulating Hormone 0.674 uIU/mL (0.360-3.740)
[2019-03-26] MEDS: METOPROLOL TAR 25 MG TAB PO SCH (21:38)
--- NOTE | 2019-03-26 22:59 | HP ---
Date of Admission: 03/26/2019 Chief Complaint: Generalized weakness, body ache. Code Status: Do not resuscitate. Primary Care Physician: Out of town. History Of Present Illness: The patient is an 88-year-old female with past medical history of histor y of liver cancer, hypertension, GERD, history of PE while on chemo, history of colon cancer, who has been in her usual state of health until 4 days prior to admission when the patient had sudden onset of generalized weakness; chills; some cough, but no sputum production. Recently had her pneumonia an d flu shot, who has had worsening of her symptoms. Patient's symptoms are constant, moderate, progre ssively worsening. She denies any nausea or vomiting. She does have some ill contacts at the [place] . She visited last week. In the ER, she was found to have atrial fibrillation with RVR, rate in the 170s. No previous history of atrial fibrillation. Her white blood cell count was elevated 14,000. Her lactate was elevated at 4.2. Procalcitonin was 3.7. Her CT scan showed right lower lobe pneumo juan. Patient was given 3 L of IV fluids accordingly with sepsis bolus. Her blood pressure was also low 80s systolic. Patient was then referred for admission. When seen in the ER, she was awake, aler t, oriented x3, in some mild distress. She converted back to sinus rhythm after receiving metoprolol . Her rate was as high as 170s. Past Medical History: History of liver cancer, hypertension, GERD, history of PE, went on chemothera py, history of colon cancer. Past Surgical History: Partial colectomy, liver surgery, right hemicolectomy. Allergies: PENICILLIN AND SULFA. Medications: List reviewed. Social History: Patient denies any tobacco use, however, did have significant exposure to tobacco us e due to her . No illicit drug use or alcohol use. Patient lives at home by herself. Does h ave a caregiver. Family History: Father had heart disease. Mother had cerebrovascular accident and brother had blood disorder. Physical Examination: Vital Signs: Blood pressure 103/85, pulse 92, respirations 22, temperature 97.2, O2 of 96% on room a ir. Blood pressure as low as 81/56 with heart rate of 157, respirations 22. GENERAL: Awake, alert, and oriented x3. Elderly female, ill appearing. HEENT: Normocephalic, atraumatic. PERRLA. EOMI. Dry mucous membranes. Oropharynx is clear, poor dentition. Conjunctivae anicteric. Neck: Supple. No JVD. Trachea midline. Cardiovascular: S1, S2, irregularly irregular. Peripheral pulses present. Respiratory: Some diminished breath sounds, worse on the right. No wheezing. Some rales heard. Pa tient is tachypneic with no use of accessory muscles. Gastrointestinal: Abdomen is soft, nontender, nondistended. Positive bowel sounds. No guarding or rigidity. Extremities: No clubbing, cyanosis, or edema. No calf tenderness. Neurologic: Cranial nerves 2 through 12 intact grossly. No focal neurological deficits. Speech is normal. Skin: No rashes. Normal skin turgor. Psychiatric: Mood is okay. Affect is full. Insight and judgment are good. Laboratory Data: Sodium 133, potassium 3.3, chloride 99, CO2 of 23, BUN 30, creatinine 1.37, glucose 107, lactate 4.2, calcium 9.2, magnesium 2.5, total bilirubin 2.7, direct bilirubin 1.3, AST 74, ALT 39, alkaline phosphatase 159. Troponin 0.04. BNP 1533, albumin 2.5, lipase 119. Procalcitonin 3.7 6. INR 1.33. WBC 14.4, H and H 14 and 40.8, platelets 273, neutrophils 83%. UA is negative. Influ zeeshan screen negative. Imaging Studies: CT scan of the abdomen and pelvis shows mild enlargement of a 14 cm hepatic cyst, p reviously measured 13.5 cm, pericardiac cyst 6.7 cm, left renal parapelvic cyst. CT scan of the chest shows mild right lower lobe opacities, may represent a mild pneumonia or atelect asis, minimal right pleural effusion, small fluid collection anterior to the ascending thoracic aorta is unchanged, likely benign. No mediastinal or hilar lymphadenopathy seen. Pericardial effusion no t seen. Assessment And Plan: An 88-year-old female with: 1.Sepsis secondary to pneumonia. We will continue with sepsis guidelines. Patient has received 3 L of IV fluids. Patient was hypotensive with acute organ dysfunction. Kidney functions elevated to 1 .39. White count is elevated at 14.4. Patient is hypotensive, systolic in the 80s. Lactate elevate d at 4.2. Procalcitonin elevated. Continue with broad-spectrum IV antibiotics. We will obtain bloo d cultures, sputum cultures, urine culture. Influenza screen is negative. 2.Right lower lobe pneumonia. We will continue with IV antibiotics. Patient has multiple allergies . Continue with Levaquin. Follow up on blood cultures and sputum cultures. 3.New-onset atrial fibrillation with rapid ventricular rate. We will check TSH and magnesium level. Troponin levels negative. Patient improved with metoprolol and converted back to sinus rhythm. We will consult Cardiology, obtain echocardiogram and start on anticoagulation with Lovenox. 4.History of liver cancer, status post partial liver resection. CT scan shows enlarging cyst. 5.History of colon cancer, status post right hemicolectomy. 6.Gastroesophageal reflux disease. We will continue PPI. Plan: Admit patient to Med-Surg, place as inpatient. Length of stay greater than 2 midnights. CHANDU Voice ID: [id number]
[2019-03-27] MEDS: NA CHLORIDE 0.9% 1,000 ML IV SCH ×4 (01:51→10:31)
[2019-03-27] MEDS: METOPROLOL TAR 25 MG TAB PO SCH (06:00)
[2019-03-27] MEDS: ACETAMINOPHEN 500 MG TAB PO PRN ×2 (06:02→14:39)
--- NOTE | 2019-03-27 06:24 | EKG ---
Test Date: 2019-03-26 Test Time: 12:40:05 Silk Screen Printing Racker: ZI MEASUREMENT RESULTS: Intervals: Rate: 107 GA: QRSD: 80 QT: 326 QTc: 435 [place]: P: GA: QRS: -28 T: 1 INTERPRETIVE STATEMENTS: Atrial fibrillation with rapid ventricular response Inferior infarct, age undetermined Cannot rule out Anterior infarct, age undetermined Abnormal ECG Compared to ECG 03/26/2019 11:26:02 Ventricular premature complex(es) no longer present Left-axis deviation no longer present Myocardial infarct finding still present Electronically Signed On 03-27-19 06:24:04 ENGINEER AND GEOLOGIST by Caesar Brenner
[2019-03-27 06:38] LABS: Absolute Lymphocytes (CBC) 0.9 K/uL (0.7-4.9); Hematocrit 37.3 % (36.0-45.0); Lymphocytes % 6.8 % (15.3-44.8); MPV 8.4 fL (7.6-11.3); RBC Red Blood Cell Count 3.94 M/uL (3.86-4.86)
[2019-03-27 06:58] LABS: Bilirubin Total 2.1 mg/dL (0.2-1.0); Magnesium 2.2 mg/dL (1.8-2.4); Phosphorus 2.3 mg/dL (2.5-4.9); Protein, Total 5.9 g/dL (6.4-8.2)
[2019-03-27] MEDS: CETIRIZINE HCL 5 MG TABLET PO SCH (08:10)
[2019-03-27] MEDS: PANTOPRAZOLE 40MG TABLET PO SCH (08:10)
[2019-03-27] MEDS ORDERED: FLUTICASONE IH PRN (10:23)
[2019-03-27] MEDS ORDERED: POTASSIUM PHOS IN 0.9 % NACL 15 MMOL/250 ML BAG IV ONE (10:30)
[2019-03-27] MEDS ORDERED: POTASSIUM CL SA 10 MEQ TAB PO ONE (10:30)
[2019-03-27] MEDS ORDERED: FLUTICASONE 50MCG NASAL SPRAY NAS PRN (10:35)
--- NOTE | 2019-03-27 11:42 | CON ---
Identification: 88-year-old woman. Chief Complaint: Heart racing, weakness. Reason For Cardiology Consult: Atrial fibrillation. History Of Present Illness: Ms. Diaz has never had any heart trouble before. No history of heart a ttacks or stents or chest pain, atrial fib, or other heart rhythm problems. She has had colon cancer and has stage IV colon cancer with metastasis. I think the colon mass itself was resected, but she has a very large hepatic metastasis. She is [id number]. Medications: Her outpatient medications have been omeprazole, Avapro, cetirizine, cholecalciferol, c alcium carbonate, Coenzyme Q10, multivitamin, vitamin B complex, vitamin D, Viteyes, fluticasone, and gabapentin. Allergies: SHE IS ALLERGIC TO PENICILLIN, SULFA, AND AZITHROMYCIN. Social History: She uses no tobacco. No illegal drugs. No alcohol. [facility] half-way. Unable to pull herself up off the floor. After she stood up, got weak and slumped and she was ady t to the emergency room. She was found to be in atrial fibrillation. Her heart rate was 162 beats p er minute. Presently, she is in sinus rhythm, although an EKG has not yet been done documenting that it is evident on physical exam and telemetry that she is in sinus rhythm now. Physical Examination: General: She is 5 feet 3 inches, 150 pounds. Alert, oriented, pleasant, not in distress. Lungs: Clear. Extremities: Reveal trace edema. No cyanosis or clubbing. Distal pulses barely palpable. I think the patient should be on anticoagulation. She is with enoxaparin and she had been given some metoprolol but I think we should stop that. See how she does on Betapace and if she does well, let her continue to take that. It has a much better chance of keeping her in normal rhythm. I think she would be a candidate for anticoagulation with Eliquis, it would be 5 mg b.i.d. Thank you very much for your kind referral of Ms. Diaz. I will follow her with you. [place]/PAT Voice ID: [id number] Report ID: [id number]
--- NOTE | 2019-03-27 14:55 | PN ---
Date of Progress Note: 03/27/2019 Patient is seen and examined. Chart reviewed and case discussed with RN. Patient is doing well, now back in sinus rhythm. Did complain of some pain, which is chronic in her back. Medications: List reviewed. Physical Examination: Vital Signs: Temperature 97.6, heart rate 94, blood pressure 101/55, respirations 20, O2 at 95% on 3 L via nasal cannula. General: Awake, alert, oriented x3. Elderly female, in some mild distress, slightly ill-appearing. CV: S1, S2. Regular rate and rhythm. Peripheral pulses present. Respiratory: Diminished breath sounds. No wheezing or stridor. No use of accessory muscles. Gastro intestinal: Abdomen is soft, nontender, nondistended. Positive bowel sounds. Extremities: No clubbing, cyanosis, or edema. Neurologic: Nonfocal. Laboratory Data: Sodium 139, potassium 3, chloride 107, CO2 of 21, BUN 21, creatinine 0.68, glucose 82, lactate 1.4, calcium 8.3, phosphorus 2.3, magnesium 2.2, total bilirubin 2.1, AST 130, ALT 53. P rocalcitonin 2.62. WBC 13.1, H and H 12.4 and 37.3, platelets 241, neutrophils 80%. Blood cultures pending. Urine culture growing mixed tyler. Sputum culture is also pending. EKG shows atrial fibri llation with RVR, rate of 107, inferior infarct, age undetermined. Abnormal EKG. Assessment And Plan: An 88-year-old female with: 1.Sepsis secondary to pneumonia, improving. Patient had organ dysfunction, hypotension, elevated wh ite blood cell count, elevated lactate, improving. Blood pressure is now in the low 100s. Kidney fu nction is back to normal. Patient now has some elevated LFTs secondary to pneumonia. Cultures are p ending. We will continue IV antibiotics. 2.Right lower lobe pneumonia. Continue Levaquin. Follow up on culture results. Patient has multip le allergies including penicillin. 3.New onset atrial fibrillation with RVR, now back in sinus rhythm. Cardiology input appreciated. We will need echocardiogram. Continue with Lovenox. We will switch to oral anticoagulants upon disc harge. 4.Hypophosphatemia. We will replace and monitor. 5.History of liver cancer, status post partial liver resection. CT shows enlarging cyst. 6.Elevated LFTs, may be secondary to above. 7.History of colon cancer, status post right hemicolectomy. 8.Gastroesophageal reflux disease. We will continue PPI. 9.Acute respiratory distress with hypoxia likely secondary to pneumonia. Patient is on 3 L of oxyge n via nasal cannula. We will try to wean off as tolerated. 10.Severe protein-calorie malnutrition. Albumin is 2. We will provide supplements. 11.Hypokalemia. Replace and monitor. SA/MODL Voice ID: [id number] Report ID: [id number]
[2019-03-27] MEDS: SOTALOL HCL 80 MG TAB PO SCH (17:15)
[2019-03-27] MEDS: APIXABAN 5 MG TABLET PO SCH (20:03)
[2019-03-27] MEDS ORDERED: KCL 20 MEQ/100 mL IVPB 20 MEQ/100 ML BAG IV SCH (23:00)
[2019-03-28] MEDS ORDERED: POTASSIUM CL SA 10 MEQ TAB PO ONE
[2019-03-28] MEDS: ACETAMINOPHEN 500 MG TAB PO PRN ×2 (02:34→17:32)
[2019-03-28 04:14] LABS: Absolute Lymphocytes (CBC) 0.7 K/uL (0.7-4.9); Basophils % 0.1 % (0-1.3); Hematocrit 33.8 % (36.0-45.0); Lymphocytes % 5.6 % (15.3-44.8); MPV 8.8 fL (7.6-11.3); RBC Red Blood Cell Count 3.68 M/uL (3.86-4.86)
[2019-03-28 04:34] LABS: ALT/SGPT 54 U/L (12-78); AST/SGOT 92 U/L (15-37); Albumin 1.9 g/dL (3.4-5.0); Alkaline Phosphatase 133 U/L (45-117); BUN Blood Urea Nitrogen 22 mg/dL (7-18); Bicarbonate 23 mmol/L (21-32); Bilirubin Total 1.3 mg/dL (0.2-1.0); Glucose Level 88 mg/dL (74-106); Potassium 3.4 mmol/L (3.5-5.1); Protein, Total 5.5 g/dL (6.4-8.2); Sodium Level 138 mmol/L (136-145)
--- NOTE | 2019-03-28 05:24 | EKG ---
Test Date: 2019-03-26 Test Time: 13:28:48 Aircraft Powertrain Repairer: ZI MEASUREMENT RESULTS: Intervals: Rate: 99 MN: 182 QRSD: 88 QT: 330 QTc: 423 [place]: P: 38 MN: 182 QRS: -31 T: 2 INTERPRETIVE STATEMENTS: Sinus rhythm with premature atrial complexes Left axis deviation Low voltage QRS Inferior infarct, age undetermined Abnormal ECG Compared to ECG 03/26/2019 12:40:05 Atrial premature complex(es) now present Left-axis deviation now present Low QRS voltage now present Atrial fibrillation no longer present Myocardial infarct finding still present Electronically Signed On 03-28-19 05:24:09 OIL PUMP STATION OPERATOR CHIEF by Caesar Brenner
[2019-03-28] MEDS: SOTALOL HCL 80 MG TAB PO SCH ×2 (06:24→17:32)
[2019-03-28] MEDS: PANTOPRAZOLE 40MG TABLET PO SCH (06:24)
[2019-03-28] MEDS: NA CHLORIDE 0.9% 1,000 ML IV SCH (06:26)
--- NOTE | 2019-03-28 07:34 | EKG ---
Test Date: 2019-03-27 Test Time: 06:34:23 Band Saw Operator Cake Cutting: RT-O MEASUREMENT RESULTS: Intervals: Rate: 101 IL: 190 QRSD: 90 QT: 336 QTc: 435 [place]: P: 57 IL: 190 QRS: -32 T: 14 INTERPRETIVE STATEMENTS: Sinus tachycardia with premature atrial complexes Left axis deviation Low voltage QRS Inferior infarct, age undetermined Abnormal ECG Compared to ECG 03/26/2019 13:28:48 Sinus rhythm no longer present Myocardial infarct finding still present Electronically Signed On 03-28-19 07:34:13 ASSISTED LIVING HOUSEKEEPER by Caesar Brenner
--- NOTE | 2019-03-28 07:34 | EKG ---
Test Date: 2019-03-27 Test Time: 13:18:03 Fabric And Textile Factory Worker: ACACIA MEASUREMENT RESULTS: Intervals: Rate: 91 AR: 208 QRSD: 74 QT: 344 QTc: 423 [place]: P: 51 AR: 208 QRS: -27 T: 2 INTERPRETIVE STATEMENTS: Sinus rhythm with premature supraventricular complexes and premature ventricular complexes or fusion complexes Low voltage QRS Septal infarct, age undetermined Inferior infarct, age undetermined Abnormal ECG Compared to ECG 03/27/2019 06:34:23 Fusion complex(es) now present Ventricular premature complex(es) now present Sinus tachycardia no longer present Left-axis deviation no longer present Myocardial infarct finding still present Electronically Signed On 03-28-19 07:33:51 CARTOONIST SPECIAL EFFECTS by Caesar Brenner
[2019-03-28] MEDS ORDERED: HOME MED 1 EA UNK (Ubidecarenone [Co Q-10] 100 MG) PO SCH (09:00)
[2019-03-28] MEDS: CETIRIZINE HCL 5 MG TABLET PO SCH (09:07)
[2019-03-28] MEDS: APIXABAN 5 MG TABLET PO SCH ×2 (09:07→20:09)
[2019-03-28] MEDS: GABAPENTIN 300 MG CAP PO SCH (09:07)
[2019-03-28] MEDS: Levofloxacin 750mg IV 750 MG/150 ML BAG IV SCH (18:22)
[2019-03-28] MEDS ORDERED: MORPHINE 2 MG/ML SYR IV ONE (19:22)
[2019-03-28 20:12] LABS: Troponin I 0.1 ng/mL (0.0-0.045)
[2019-03-29] MEDS: NA CHLORIDE 0.9% 1,000 ML IV SCH (04:11)
[2019-03-29] MEDS: ACETAMINOPHEN 500 MG TAB PO PRN ×2 (04:26→13:07)
--- NOTE | 2019-03-29 04:31 | DS ---
Consultants: Dr. Brenner with Cardiology. Admitting Diagnoses: 1.Sepsis secondary to pneumonia. 2.Right lower lobe pneumonia. 3.New-onset atrial fibrillation with rapid ventricular rate. 4.History of liver cancer, status post partial liver resection. 5.History of colon cancer, status post right hemicolectomy. 6.Gastroesophageal reflux disease. Discharge Diagnoses: 1.Sepsis, resolved. 2.Right lower lobe pneumonia, improving. 3.New onset atrial fibrillation with rapid ventricular rate now back in sinus rhythm on Eliquis and Betapace. 4.Hypophosphatemia, replaced. 5.History of liver cancer, status post resection, partial. 6.Elevated LFTs. 7.Acute kidney injury, resolved. 8.History of colon cancer, status post right hemicolectomy. 9.Gastroesophageal reflux disease, stable. 10.Severe protein-calorie malnutrition, albumin 1.9. 11.Hypokalemia, corrected. Hospital Course: Patient is an 88-year-old female with past medical history of GERD, hypertension, l iver cancer, colon cancer, history of PE, comes in with generalized weakness and body aches. Patient was found to be septic. Her source of infection was pneumonia found on CT scan. Patient was starte d on IV antibiotics, improved with treatment. She was also given IV fluids and sepsis bundle was ini tiated. Patient did have new onset of atrial fibrillation with RVR. Patient was given metoprolol an d then switched over to Betapace, was started on anticoagulation and will be switched over to Eliquis on discharge. Overall, the patient did well during the course of the hospital stay. She converted back to sinus rhythm and has been stable. Her white blood cell count has been trending down as well as her procalcitonin. Her lactate normalized. The patient was no longer septic. She had mild elect rolyte abnormalities, which were corrected. Patient was somewhat weak and worked with physical [employer] py, however, was able to ambulate with a walker. Patient was then cleared for discharge and was sent home with home health. Medications: As per medication reconciliation list. Followup: Follow up with primary care physician in 2-3 days, follow up with soap press feeder, Dr. Brenner in 2 weeks. Return to ER for worsening condition. Diet: Heart healthy. Activity: Fall precautions, ambulate with assist. Medications: As per medication reconciliation list. Physical Examination: Vital signs: Stable, afebrile. General: Awake, alert, and oriented x3. Elderly female, not in any acute distress. CV: S1, S2. Regular rate and rhythm. Respiratory: Moving air well bilaterally. Abdomen: Abdomen is soft, nontender, nondistended. Positive bowel sounds. Extremities: No clubbing, cyanosis, or edema. Neurologic: Nonfocal. Total time spent discharging the patient was 39 minutes. CHANDU Voice ID: [id number] Report ID: [id number]
[2019-03-29 04:39] VITALS: O2SAT 93
[2019-03-29] MEDS: SOTALOL HCL 80 MG TAB PO SCH (05:39)
[2019-03-29] MEDS: PANTOPRAZOLE 40MG TABLET PO SCH (05:39)
[2019-03-29 06:00] LABS: Absolute Lymphocytes (CBC) 0.8 K/uL (0.7-4.9); Basophils % 0.1 % (0-1.3); Hematocrit 33.3 % (36.0-45.0); Lymphocytes % 5.4 % (15.3-44.8); MPV 8.5 fL (7.6-11.3); RBC Red Blood Cell Count 3.62 M/uL (3.86-4.86)
[2019-03-29 06:16] LABS: ALT/SGPT 45 U/L (12-78); AST/SGOT 47 U/L (15-37); Albumin 1.7 g/dL (3.4-5.0); Alkaline Phosphatase 127 U/L (45-117); BUN Blood Urea Nitrogen 19 mg/dL (7-18); Bicarbonate 25 mmol/L (21-32); Bilirubin Total 1.3 mg/dL (0.2-1.0); Glucose Level 88 mg/dL (74-106); Potassium 3.3 mmol/L (3.5-5.1); Protein, Total 5.4 g/dL (6.4-8.2); Sodium Level 141 mmol/L (136-145)
[2019-03-29 08:15] LABS: Blood Morphology Comment NOT SEEN (NOT SEEN); Platelet Estimate ADEQ
[2019-03-29] MEDS: GABAPENTIN 300 MG CAP PO SCH (09:19)
[2019-03-29] MEDS: APIXABAN 5 MG TABLET PO SCH (09:19)
[2019-03-29] MEDS: CETIRIZINE HCL 5 MG TABLET PO SCH (09:20)
--- NOTE | 2019-03-29 12:21 | EKG ---
Test Date: 2019-03-28 Test Time: 20:34:16 Marketing Financial Analyst: RT MEASUREMENT RESULTS: Intervals: Rate: 95 HI: 176 QRSD: 70 QT: 356 QTc: 447 [place]: P: 31 HI: 176 QRS: -26 T: 2 INTERPRETIVE STATEMENTS: Sinus rhythm with occasional premature ventricular complexes Low voltage QRS Inferior infarct, age undetermined Possible Anterolateral infarct, age undetermined Abnormal ECG Compared to ECG 03/28/2019 18:46:10 Sinus tachycardia no longer present Myocardial infarct finding still present Electronically Signed On 03-29-19 12:19:25 CARBURETOR MECHANIC by Filippo Torres
--- NOTE | 2019-03-29 12:21 | EKG ---
Test Date: 2019-03-28 Test Time: 18:46:10 Corrections Cadet: MACI MEASUREMENT RESULTS: Intervals: Rate: 126 MA: 178 QRSD: 78 QT: 296 QTc: 428 [place]: P: 21 MA: 178 QRS: -2 T: 11 INTERPRETIVE STATEMENTS: Sinus tachycardia with occasional premature ventricular complexes Low voltage QRS Cannot rule out Anterior infarct, age undetermined Abnormal ECG Compared to ECG 03/27/2019 13:18:03 Sinus rhythm no longer present Atrial premature complex(es) no longer present Fusion complex(es) no longer present Myocardial infarct finding still present Electronically Signed On 03-29-19 12:19:29 CIGARETTE MAKING MACHINE OPERATOR by Filippo Torres
[2019-03-29 12:37] VITALS: BP 124/65; TEMP 97.3
--- NOTE | 2019-03-29 13:59 | P.PN ---
Date of Service: 03/29/19 This is an addendum to discharge summary by Dr. Araya. Patient experienced an episode of sinus tachycardia with multiple PVCs, was reported to be anxious last night and kept overnight to observe. Patient seen and examined this morning. She has no specific complaint. She remained in sinus rhythm and eager to go home. Noted mild increase in WBC count but patient is asymptomatic and afebrile. Patient prescribed doxycycline for pneumonia. She is also on Betapace and Eliquis as recommended by cardiology for AFib. She is discharged with home health for PT.
--- NOTE | 2019-03-29 15:46 | PN ---
Date of Progress Note: 03/29/2019 Ms. Diaz is 88, who was admitted on 03/26/[address] 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 She is a do not resuscitate. She was p laced on Betapace and Eliquis for her atrial fibrillation. Today, she is in normal sinus rhythm. Fa irly asymptomatic, wanting to go home. I am okay without going home on the Betapace and Eliquis. elvia does not have a primary care physician and I recommended that she find when see her and I would lik elvia to see her myself in the office in the next 2 weeks. JENNIFER/PAT Voice ID: [id number] Report ID: [id number]
--- OUTSIDE RECORDS SUMMARY | 2019-04-03 19:58 | XMS REPORT ---
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 Problem Primary osteoarthritis of right M17.11 Active knee Problem Left sciatic nerve pain M54.32 Active Problem Primary osteoarthritis of left knee M17.12 Active Problem COPD, 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
== END 2019-03-29 15:30 | disposition home health service (06) | DRG 871 ==
LOC: ER 10:47 → ERHOLD 15:55 → 4TH 17:23
PROVIDERS: ADMIT Family Medicine; ATTEND Family Medicine
DX: A41.9 Sepsis, unspecified organism (principal); J18.9 Pneumonia, unspecified organism; E43 Unspecified severe protein-calorie malnutrition; N17.9 Acute kidney failure, unspecified; I48.91 Unspecified atrial fibrillation; E83.39 Other disorders of phosphorus metabolism; Z85.05 Personal history of malignant neoplasm of liver; K21.9 Gastro-esophageal reflux disease without esophagitis; Z85.038 Personal history of other malignant neoplasm of large intestine; Z68.26 Body mass index [BMI] 26.0-26.9, adult; E87.6 Hypokalemia; Z90.49 Acquired absence of other specified parts of digestive tract; R06.03 Acute respiratory distress; R09.02 Hypoxemia; Z88.0 Allergy status to penicillin; Z88.2 Allergy status to sulfonamides
CPT/HCPCS: 36415; 51702; 71045; 71260; 74177; 80048; 80053; 80076; 81003; 82550; 82553; 83605; 83690; 83735; 83880; 84100; 84132; 84145; 84439; 84443; 84484; 85025; 85610; 87040; 87086; 87088; 87804; 93005; 94760; 96361; 96365; 97110; 97112; 97116; 97161; 97530; 99285; J1650; J2270; J7030; Q9967

== ENCOUNTER 2019-04-08 10:15 | Emergency (ER) | payer OTHER ==
[2019-04-08] MEDS ORDERED: NA CHLORIDE 0.9% 1,000 ML ONE (11:25)
[2019-04-08 11:53] LABS: Absolute Lymphocytes (CBC) 1.1 K/uL (0.7-4.9); Basophils % 0.3 % (0-1.3); Hematocrit 37.1 % (36.0-45.0); Lymphocytes % 7.6 % (15.3-44.8); MPV 7.7 fL (7.6-11.3); RBC Red Blood Cell Count 4.05 M/uL (3.86-4.86)
--- NOTE | 2019-04-08 12:17 | RAD REPORT ---
EXAM DESCRIPTION: Raoul Neil And Maryan (2 Views)04/08/2019 12:06 pm CLINICAL HISTORY: Fever COMPARISON: March 26, 2019 FINDINGS: Small right pleural effusion is unchanged. Mild right basilar atelectasis The remainder of the lungs appear clear. The heart is normal size
[2019-04-08 12:19] LABS: ALT/SGPT 35 U/L (12-78); AST/SGOT 56 U/L (15-37); Alkaline Phosphatase 234 U/L (45-117); BUN Blood Urea Nitrogen 12 mg/dL (7-18); Bicarbonate 32 mmol/L (21-32); Bilirubin Direct 0.5 mg/dL (0-0.2); Glucose Level 90 mg/dL (74-106); Lipase 334 U/L (73-393); Potassium 3.1 mmol/L (3.5-5.1); Protein, Total 6.5 g/dL (6.4-8.2); Sodium Level 134 mmol/L (136-145)
[2019-04-08] MEDS ORDERED: POTASSIUM CL SA 10 MEQ TAB PO ONE (12:42)
[2019-04-08 14:02] LABS: Urine Blood NEGATIVE (NEG); Urine Glucose NEGATIVE (NEG); Urine Protein NEGATIVE (NEG); Urine Specific Gravity 1.005 (1.005-1.030)
--- NOTE | 2019-04-08 14:43 | ECHO ---
HEIGHT: ft in WEIGHT: lb oz DATE OF STUDY: 04/08/[address]: Mely Birch 2-DIMENSIONAL: YES M.MODE: YES DOPPLER: YES COLOR FLOW: YES TDS: PORTABLE: YES DEFINITY: BUBBLE STUDY: DIAGNOSIS: SHORTNESS OF BREATH CARDIAC HISTORY: CATHERIZATION: NO SURGERY: NO PROSTHETIC VALVE: NO PACEMAKER: NO MEASUREMENTS (cm) DIASTOLIC (NORMALS) SYSTOLIC (NORMALS) IVSd 0.6 (0.6-1.2) LA Diam 22.5 (1.9-4.0) LVEF 57% LVIDd 4.0 (3.5-5.7) LVIDs 2.8 (2.0-3.5) %FS 29% LVPWd 0.8 (0.6-1.2) Ao Diam 2.9 (2.0-3.7) 2 DIMENSIONAL ASSESSMENT: RIGHT ATRIUM: NORMAL LEFT ATRIUM: NORMAL RIGHT VENTRICLE: NORMAL LEFT VENTRICLE: NORMAL TRICUSPID VALVE: NORMAL MITRAL VALVE: NORMAL PULMONIC VALVE: NORMAL AORTIC VALVE: MILD SCLEROSIS PERICARDIAL EFFUSION: NONE AORTIC ROOT: NORMAL LEFT VENTRICULAR WALL MOTION: NORMAL DOPPLER/COLOR FLOW: PHYSIOLOGICAL TRICUSPID REGURGITATION. NORMAL RIGHT VENTRICULAR SYSTOLIC PRESSURE. COMMENTS: NORMAL LEFT VENTRICULAR EJECTION FRACTION. AORTIC SCLEROSIS WITH NO AORTIC STENOSIS OR AORTIC REGURGITATION. OTHERWISE NORMAL 2-DIMENSIONAL ECHOCARDIOGRAM WITH DOPPLER. TECHNOLOGIST: FRIDA SMITH
--- NOTE | 2019-04-08 14:53 | RAD REPORT ---
EXAM DESCRIPTION: US - Extrem Venous W Compress Chevy - 04/08/2019 2:42 pm CLINICAL HISTORY: SWELLING Bilateral leg edema and swelling. COMPARISON: EXT VENOUS UNI LTD dated 09/04/2011 TECHNIQUE: Real-time sonographic interrogation of the left and right lower extremity deep venous sys tems was performed. FINDINGS: Normal compressibility, flow augmentation, phasic flow and spontaneous flow is identified in both the left and right lower extremity deep venous systems. IMPRESSION: No sonographic evidence of left or right lower extremity deep venous thrombosis.
[2019-04-08] MEDS ORDERED: ACETAMINOPHEN 500 MG TAB ONE (15:04)
--- NOTE | 2019-04-08 15:18 | ER ---
Nurse's Notes [facility] Name: Beryl Diaz Age: 88 yrs Sex: Female : 1930 Arrival Date: 04/08/2019 Time: 10:16 Bed 18 Private MD: Diagnosis: Elevated white blood cell count;Edema, unspecified Presentation: 04/08 10:37 Presenting complaint: Patient states: Sent by Dr. Varela's office for elevated WBC ss count. Neighbor reports that patient was seen 2 weeks ago for pneumonia, but states that patient does not seem to be getting better. Denies fever. Transition of care: patient was not received from another setting of care. Onset of symptoms is unknown. Risk Assessment: Do you want to hurt yourself or someone else? Patient reports no desire to harm self or others. Initial Sepsis Screen: Does the patient meet any 2 criteria? No. Patient's initial sepsis screen is negative. Does the patient have a suspected source of infection? No. Patient's initial sepsis screen is negative. Care prior to arrival: None. 10:37 Method Of Arrival: Wheelchair ss 10:37 Acuity: TIBURCIO 3 ss Historical: - Allergies: 10:40 PENICILLINS (rash); ss 10:40 Sulfa (Sulfonamide Antibiotics) (rash); ss - PMHx: 10:40 Hypertension; Atrial Fib; Pneumonia; COPD; High Cholesterol; ss - PSHx: 10:40 Tonsillectomy; Hysterectomy; Appendectomy; Adenoids; Tubal ligation; left cataract ss surgery; wrist fracture surgery; liver resection; - Immunization history:: Adult Immunizations up to date. - Social history:: Smoking status: Patient/guardian denies using tobacco. - Ebola Screening: : Patient denies exposure to infectious person Patient denies travel to an Ebola-affected area in the 21 days before illness onset. Screenin:30 Abuse screen: Denies threats or abuse. Nutritional screening: No deficits noted. em Tuberculosis screening: No symptoms or risk factors identified. Fall Risk None identified. Assessment: 11:30 General: Appears in no apparent distress. comfortable, well groomed, well developed, em well nourished, Behavior is calm, cooperative, Reports fatigue for >3 days, Denies fever. Pain: Denies pain. Neuro: Level of Consciousness is awake, alert, obeys commands, Oriented to person, place, time, situation, Appropriate for age Reports weakness. Cardiovascular: Capillary refill < 3 seconds Patient's skin is warm and dry. Respiratory: Reports shortness of breath on exertion Airway is patent Respiratory effort is even, unlabored, Respiratory pattern is regular, symmetrical, Breath sounds are clear bilaterally. GI: Abdomen is flat, Abd is soft X 4 quads Abdomen is tender to palpation in right upper quadrant Patient currently denies nausea, vomiting. Derm: Skin is intact, is healthy with good turgor, Skin is pink, warm \T\ dry. Musculoskeletal: Capillary refill < 3 seconds, Range of motion: intact in all extremities. 11:35 General: The previous assessment is accurate. Neighbor/ family friend remains at bedside with patient.. 12:45 Reassessment: assisted to bedside commode, tolerated well. em 13:27 Reassessment: instructional technology teacher at bedside. em 14:10 Reassessment: wheeled to US. em 15:00 Reassessment: Patient appears in no apparent distress at this time. Patient and/or em family updated on plan of care and expected duration. Pain level reassessed. Patient is alert, oriented x 3, equal unlabored respirations, skin warm/dry/pink. Patient states symptoms have improved. Vital Signs: 10:40 BP 112 / 71; Pulse 80; Resp 16; Temp 97.6(O); Pulse Ox 95% on R/A; Weight 68.04 kg; ss Height 5 ft. 3 in. (160.02 cm); Pain 0/10; 11:38 BP 123 / 70; Pulse 82; Resp 18; Pulse Ox 99% on R/A; Pain 0/10; em 12:31 BP 123 / 91; Pulse 81; Resp 18; Pulse Ox 99% on R/A; em 13:45 BP 115 / 78; Pulse 76; Resp 16; Pulse Ox 97% on R/A; em 15:51 BP 126 / 78; Pulse 80; Resp 18; Pulse Ox 99% on R/A; Pain 0/10; em 10:40 Body Mass Index 26.57 (68.04 kg, 160.02 cm) ED Course: 10:16 Patient arrived in ED. as 10:39 Triage completed. ss 10:40 Arm band placed on right wrist. ss 10:52 Krishna Presley LVN is Primary Nurse. em 10:59 [facility] Bir[facility]-C [facility]. kb 10:59 Wil Sinha MD is Attending Physician. kb 11:30 Patient has correct armband on for positive identification. Placed in gown. Bed in low em position. Call light in reach. Pulse ox on. NIBP on. 11:35 Inserted saline lock: 22 gauge in right antecubital area, using aseptic technique. em Blood collected. 11:35 Initial lab(s) drawn, by me, sent to lab. First set of blood cultures drawn by me. em 12:07 Chest Pa And Lat (2 Views) XRAY In Process Unspecified. EDMS 13:47 Echocardiogram with doppler done by office technology professor. tc 14:43 US Extremity Venous W Compression Chevy In Process Unspecified. EDMS 15:53 No provider procedures requiring assistance completed. IV discontinued, intact, em bleeding controlled, No redness/swelling at site. Pressure dressing applied. Administered Medications: 11:35 Drug: NS 0.9% 1000 ml Route: IV; Rate: 1000 ml; Site: right antecubital; em 12:35 Follow up: IV Status: Completed infusion; IV Intake: 1000ml em 12:47 Drug: Potassium Chloride 40 mEq Route: PO; em 15:03 Follow up: Response: No adverse reaction em 15:07 Drug: Tylenol 1000 mg Route: PO; em 15:30 Follow up: Response: No adverse reaction em Intake: 12:35 IV: 1000ml; Total: 1000ml. em Outcome: 15:17 Discharge ordered by MD. kb 15:53 Discharged to home via wheelchair, with family. em 15:53 Condition: good 15:53 Discharge instructions given to patient, family, Instructed on discharge instructions, follow up and referral plans. Demonstrated understanding of instructions, follow-up care. 15:54 Patient left the ED. em Signatures: Dispatcher [employer] EDMS Mely Birch FNP-C FNP-Ckb Munoz, Edgar, LVN LVN em Myranda Emerson Shelby, RERE RN Betsy Tirado, cuff presser EKG Ttc Corrections: (The following items were deleted from the chart) 14:40 13:27 Reassessment: US at bedside em em
--- NOTE | 2019-04-08 15:19 | EDPHYS ---
Physician Documentation [facility] Name: Beryl Diaz Age: 88 yrs Sex: Female : 1930 Arrival Date: 04/08/2019 Time: 10:16 Bed 18 Private MD: ED Physician Wil Sinha HPI: 04/08 11:45 This 88 yrs old Female presents to ER via Wheelchair with complaints of kb Abnormal Lab Results. 11:45 The patient presents with generalized weakness. Onset: The symptoms/episode kb began/occurred 4 day(s) ago. Context: occurred at home. Modifying factors: The symptoms are alleviated by nothing, the symptoms are aggravated by nothing. Associated signs and symptoms: Pertinent positives: weakness and elevated wbc. Severity of symptoms: At their worst the symptoms were moderate in the emergency department the symptoms are unchanged. Patient's baseline: Neuro: alert and fully oriented, Motor: no deficits, Ambulation: walks without assistance, Speech: normal. The patient has not experienced similar symptoms in the past. The patient has been recently been admitted at [facility], was discharged a couple of weeks ago. Pt reports she was admitted to sepsis and pneumonia 3 weeks ago. States she was here for 3 days and discharged home. Follow up with PCP and had labs and chest x-ray [place] [address] at that time and x-ray was ok. Had a bone scan yesterday that also came back normal. States she has been weak since she was in the hospital so she went back to PCP today and had another CBC done that showed WBC 49929. Her PCP sent her here to "have all the tests done that we can think of.". Historical: - Allergies: 10:40 PENICILLINS (rash); ss 10:40 Sulfa (Sulfonamide Antibiotics) (rash); ss - PMHx: 10:40 Hypertension; Atrial Fib; Pneumonia; COPD; High Cholesterol; ss - PSHx: 10:40 Tonsillectomy; Hysterectomy; Appendectomy; Adenoids; Tubal ligation; left cataract ss surgery; wrist fracture surgery; liver resection; - Immunization history:: Adult Immunizations up to date. - Social history:: Smoking status: Patient/guardian denies using tobacco. - Ebola Screening: : Patient denies exposure to infectious person Patient denies travel to an Ebola-affected area in the 21 days before illness onset. ROS: 11:51 Constitutional: Negative for fever, chills, and weight loss, ENT: Negative for injury, kb pain, and discharge, Neck: Negative for injury, pain, and swelling, Cardiovascular: Negative for chest pain, palpitations, and edema, Respiratory: Negative for shortness of breath, cough, wheezing, and pleuritic chest pain, Abdomen/GI: Negative for abdominal pain, nausea, vomiting, diarrhea, and constipation, Back: Negative for injury and pain, : Negative for injury, bleeding, discharge, and swelling, MS/Extremity: Negative for injury and deformity, Skin: Negative for injury, rash, and discoloration. 11:51 Neuro: Positive for weakness. Exam: 11:52 Constitutional: This is a well developed, well nourished patient who is awake, alert, kb and in no acute distress. Head/Face: Normocephalic, atraumatic. Neck: Trachea midline, no thyromegaly or masses palpated, and no cervical lymphadenopathy. Supple, full range of motion without nuchal rigidity, or vertebral point tenderness. No Meningismus. Chest/axilla: Normal chest wall appearance and motion. Nontender with no deformity. No lesions are appreciated. Cardiovascular: Regular rate and rhythm with a normal S1 and S2. No gallops, murmurs, or rubs. Normal PMI, no JVD. No pulse deficits. 2+ Bilateral lower extremity edema noted. (Pt recently started on laxis for this swelling) Respiratory: Lungs have equal breath sounds bilaterally, clear to auscultation and percussion. No rales, rhonchi or wheezes noted. No increased work of breathing, no retractions or nasal flaring. Back: No spinal tenderness. No costovertebral tenderness. Full range of motion. Skin: Warm, dry with normal turgor. Normal color with no rashes, no lesions, and no evidence of cellulitis. MS/ Extremity: Pulses equal, no cyanosis. Neurovascular intact. Full, normal range of motion. Neuro: Awake and alert, GCS 15, oriented to person, place, time, and situation. Cranial nerves II-XII grossly intact. Motor strength 5/5 in all extremities. Sensory grossly intact. Cerebellar exam normal. Normal gait. 11:52 Abdomen/GI: Inspection: abdomen appears normal, Bowel sounds: normal, in all quadrants, Palpation: soft, in all quadrants, mild abdominal tenderness, in the right upper quadrant. Vital Signs: 10:40 BP 112 / 71; Pulse 80; Resp 16; Temp 97.6(O); Pulse Ox 95% on R/A; Weight 68.04 kg; ss Height 5 ft. 3 in. (160.02 cm); Pain 0/10; 11:38 BP 123 / 70; Pulse 82; Resp 18; Pulse Ox 99% on R/A; Pain 0/10; em 12:31 BP 123 / 91; Pulse 81; Resp 18; Pulse Ox 99% on R/A; em 13:45 BP 115 / 78; Pulse 76; Resp 16; Pulse Ox 97% on R/A; em 15:51 BP 126 / 78; Pulse 80; Resp 18; Pulse Ox 99% on R/A; Pain 0/10; em 10:40 Body Mass Index 26.57 (68.04 kg, 160.02 cm) ss MDM: 10:59 Patient medically screened. kb 11:52 Data reviewed: vital signs, nurses notes. Data interpreted: Pulse oximetry: on room air kb is 95 %. Interpretation: normal. 12:55 ED course: Family now reports pt has been getting short of breath on exertion and they kb are worried about CHF. Requests an echo . 15:13 Counseling: I had a detailed discussion with the patient and/or guardian regarding: the kb historical points, exam findings, and any diagnostic results supporting the discharge/admit diagnosis, lab results, radiology results, the need for outpatient follow up, a development intern, a family practitioner, to return to the emergency department if symptoms worsen or persist or if there are any questions or concerns that arise at home. ED course: Echo showed normal EF. Pt educated on results and recommended follow up with PCP and cardiology. Educated to return for worsening symptoms or other concerns. . 04/08 11:10 Order name: Basic Metabolic Panel; Complete Time: 12:24 kb 04/08 11:10 Order name: CBC with Diff; Complete Time: 11:56 kb 04/08 11:10 Order name: Hepatic Function; Complete Time: 12:24 kb 04/08 11:10 Order name: Lipase; Complete Time: 12:24 kb 04/08 11:10 Order name: Lactate; Complete Time: 12:24 kb 04/08 11:10 Order name: Procalcitonin; Complete Time: 12:44 kb 04/08 11:07 Order name: Chest Pa And Lat (2 Views) XRAY; Complete Time: 12:24 kb 04/08 11:10 Order name: Blood Culture Adult (2) kb 04/08 12:57 Order name: Echo w/ Doppler kb 04/08 12:57 Order name: US Extremity Venous W Compression Chevy; Complete Time: 15:02 kb 04/08 13:01 Order name: Urine Dipstick--Ancillary (enter results); Complete Time: 14:04 eb 04/08 11:10 Order name: IV Saline Lock; Complete Time: 11:44 kb 04/08 11:10 Order name: Labs collected and sent; Complete Time: 11:44 kb 04/08 11:57 Order name: Urine Dipstick-Ancillary (obtain specimen); Complete Time: 12:55 kb Administered Medications: 11:35 Drug: NS 0.9% 1000 ml Route: IV; Rate: 1000 ml; Site: right antecubital; em 12:35 Follow up: IV Status: Completed infusion; IV Intake: 1000ml em 12:47 Drug: Potassium Chloride 40 mEq Route: PO; em 15:03 Follow up: Response: No adverse reaction em 15:07 Drug: Tylenol 1000 mg Route: PO; em 15:30 Follow up: Response: No adverse reaction em Disposition: 04/08/19 15:17 Discharged to Home. Impression: Elevated white blood cell count, Edema, unspecified. - Condition is Stable. - Discharge Instructions: Shortness of Breath, [id number], Edema, [id number], Leukocytosis, Peripheral Edema. - Medication Reconciliation Form, Thank You Letter, Antibiotic Education, Prescription Opioid Use form. - Follow up: Emergency Department; When: As needed; Reason: Worsening of condition. Follow up: Private Physician; When: 2 - 3 days; Reason: Recheck today's complaints, Continuance of care, Re-evaluation by your physician. Addendum: 04/12/2019 06:29 Co-signature as Attending Physician, Wil Sinha MD I agree with the assessment and k dr plan of care. Signatures: Dispatcher [employer] EDAZ Mely Birch, MONOTYPER-C MONOTYPER-CkWil Campbell MD MD kdr Munoz, Edgar GRAVURE PRESS OPERATOR GRAVURE PRESS OPERATOR em Irma Corado, RN RN ss Corrections: (The following items were deleted from the chart) 04/08 15:17 11:52 Constitutional: This is a well developed, well nourished patient who is awake, kb alert, and in no acute distress. Head/Face: Normocephalic, atraumatic. Neck: Trachea midline, no thyromegaly or masses palpated, and no cervical lymphadenopathy. Supple, full range of motion without nuchal rigidity, or vertebral point tenderness. No Meningismus. Chest/axilla: Normal chest wall appearance and motion. Nontender with no deformity. No lesions are appreciated. Cardiovascular: Regular rate and rhythm with a normal S1 and S2. No gallops, murmurs, or rubs. Normal PMI, no JVD. No pulse deficits. Respiratory: Lungs have equal breath sounds bilaterally, clear to auscultation and percussion. No rales, rhonchi or wheezes noted. No increased work of breathing, no retractions or nasal flaring. Back: No spinal tenderness. No costovertebral tenderness. Full range of motion. Skin: Warm, dry with normal turgor. Normal color with no rashes, no lesions, and no evidence of cellulitis. MS/ Extremity: Pulses equal, no cyanosis. Neurovascular intact. Full, normal range of motion. Neuro: Awake and alert, GCS 15, oriented to person, place, time, and situation. Cranial nerves II-XII grossly intact. Motor strength 5/5 in all extremities. Sensory grossly intact. Cerebellar exam normal. Normal gait. kb 15:54 15:17 04/08/2019 15:17 Discharged to Home. Impression: Elevated white blood cell count; em Edema, unspecified. Condition is Stable. Forms are Medication Reconciliation Form, Thank You Letter, Antibiotic Education, Prescription Opioid Use. Follow up: Emergency Department; When: As needed; Reason: Worsening of condition. Follow up: Private Physician; When: 2 - 3 days; Reason: Recheck today's complaints, Continuance of care, Re-evaluation by your physician. kb
[2019-04-08 16:20] VITALS: TEMP 97.6
[2019-04-08 16:25] VITALS: BP 126/78; O2SAT 99
== END 2019-04-08 15:54 | disposition home or self-care (01) ==
LOC: ER 10:15
DX: D72.829 Elevated white blood cell count, unspecified (principal); R60.9 Edema, unspecified; Z88.0 Allergy status to penicillin; Z88.2 Allergy status to sulfonamides
CPT/HCPCS: 93306; 87040 ×2; 85025; 80048; 36415; 80076; 83605; 81003; 83690; 84145; 71046; 93970; J7030